=== PATIENT | male | born 1955 | race Two or more races ===

== ENCOUNTER 2020-04-21 08:51 | Outpatient (REF) | payer OTHER, SELFPAY | END 2020-04-21 08:52 | disposition home or self-care (01) | LOC: HO.LAB 08:51 | PROVIDERS: Visit Provider Internal Medicine | DX: Z20.828 Contact with and (suspected) exposure to other viral communicable diseases (principal) | CPT/HCPCS: 87635 ==

== ENCOUNTER 2020-05-09 14:17 | Outpatient (REF) | payer OTHER, SELFPAY | END 2020-05-09 14:18 | disposition home or self-care (01) | LOC: HO.LAB 14:17 | PROVIDERS: Visit Provider Internal Medicine | DX: Z20.828 Contact with and (suspected) exposure to other viral communicable diseases (principal) | CPT/HCPCS: C9803; U0003 ==

== ENCOUNTER 2021-07-08 11:28 | Emergency (ER) | payer OTHER, SELFPAY ==
--- NOTE | ~2021-07-08 | XR_ITS ---
EXAMINATION: XR CHEST CLINICAL INFORMATION: Chest pain and SOB. COMPARISON: None TECHNIQUE: Frontal view of the chest was obtained. FINDINGS: No significant abnormality is noted involving the heart, lungs, mediastinum, bony thorax or soft tissues. XR/XR chest 1V IMPRESSION: Unremarkable chest examination.
--- NOTE | ~2021-07-08 | CT_ITS ---
EXAMINATION: CT HEAD WITHOUT CONTRAST CLINICAL INFORMATION: Severe headache, hypertension. COMPARISON: None TECHNIQUE: Contiguous axial imaging was performed from the skull base to vertex without intravenous administration of contrast. This CT examination was performed using dose optimization techniques as appropriate, variously including the following: *Automated exposure control *Adjustment of mA and/or kV according to patient size (this includes techniques or standardized protocols for targeted exams where dose is matched to indication/reason for exam; i.e. extremities or head) *Use of iterative reconstruction technique DLP: 822 mGy-cm FINDINGS: There is no evidence of acute intracranial hemorrhage or territorial infarction. No abnormal mass effect or midline shift is seen. There is a right infratemporal lobe encephalomalacia from previous insult or injury. Richardson to white matter differentiation is well preserved. No extra-axial fluid collections are identified. The ventricles are normal in size. There is no abnormal attenuation within the brain parenchyma. The osseous structures and soft tissues are normal. The mastoid air cells and visualized portions of the paranasal sinuses are well aerated. CT/CT head/brain wo con IMPRESSION: No acute intracranial process seen. 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
[2021-07-08 12:07] VITALS: BP 173/69; PULSE 66; RESP 18; TEMP 36.8; O2SAT 99; BMI 25.0
--- NOTE | 2021-07-08 15:56 | ECG_ITS ---
Test Reason : chest pain Blood Pressure : / mmHG Vent. Rate : 055 BPM Atrial Rate : 055 BPM P-R Int : 198 ms QRS Dur : 096 ms QT Int : 436 ms P-R-T Axes : 064 -13 -09 degrees QTc Int : 417 ms Sinus bradycardia Minimal voltage criteria for LVH, may be normal variant ( Dae product ) Nonspecific ST abnormality Abnormal ECG No previous ECGs available Referred By: Bernadette Allen Electronically Signed By:GIANNI RENE MD
--- NOTE | 2021-07-08 16:16 | ED.CHESTPAIN ---
HPI - Chest Pain General Chief Complaint: Chest Pain <RUSS Dao - Last Filed: 07/08/21 18:17> Stated Complaint: Chest pain <RUSS Dao - Last Filed: 07/08/21 18:17> Time Seen by Provider: 07/08/21 15:55 <RUSS Dao - Last Filed: 07/08/21 18:17> Source: patient <RUSS Dao - Last Filed: 07/08/21 18:17> Mode of arrival: ambulatory <RUSS Dao - Last Filed: 07/08/21 18:17> Limitations: no limitations <RUSS Dao Last Filed: 07/08/21 18:17> History of Present Illness HPI narrative: 65-year-old male past medical history hypertension presents to the emergency department for chest pain, headache and high blood pressure x2 days. Patient tells me that his chest pain is in the center of his chest, does not radiate anywhere, he tells me is intermittent nature. When asked to rate it on a scale 1-10 he tells me it is not too bad. He also complains of a headache, he is unable to localize where exactly it hurts he tells me he is having a severe headache, all over his head, worse in the occipital region. Patient also tells me he is concerned about his blood pressures they have been in the 160s systolic in 90s diastolic at home when he has been checking his pressures. He tells me is on high blood pressure medication, which he is taking regularly, he has not missed any doses. He denies anxiety at this time. He denies shortness of breath, fevers, chills, nausea, vomiting, abdominal pain, dizziness, vision changes. <RUSS Dao - Last Filed: 07/08/21 18:17> MD complaint: chest pain <RUSS Dao - Last Filed: 07/08/21 18:17> Pertinent past history: other (HTN) <RUSS Dao Last Filed: 07/08/21 18:17> Onset (ago): day(s) (2) <RUSS Dao - Last Filed: 07/08/21 18:17> Timing of current episode: episodic <RUSS Dao - Last Filed: 07/08/21 18:17> Prior episodes: Yes <RUSS Dao - Last Filed: 07/08/21 18:17> Onset: during rest <RUSS Dao - Last Filed: 07/08/21 18:17> Pain location: substernal <RUSS Dao - Last Filed: 07/08/21 18:17> Pain radiation: none <RUSS Dao - Last Filed: 07/08/21 18:17> Severity: mild <RUSS Dao - Last Filed: 07/08/21 18:17> Quality: tightness and aching <RUSS Dao - Last Filed: 07/08/21 18:17> Relieving factors: nothing <RUSS Dao - Last Filed: 07/08/21 18:17> Exacerbating factors: nothing <RUSS Dao - Last Filed: 07/08/21 18:17> Treatment prior to arrival: none <RUSS Dao - Last Filed: 07/08/21 18:17> Related Data Allergies/Adverse Reactions: Allergies Allergy/AdvReac Type Severity Reaction Status Date / Time aspirin [ASPIRIN] Allergy Severe FACIAL Unverified 03/17/20 19:06 SWELLING <RUSS Dao - Last Filed: 07/08/21 18:17> Review of Systems Review of Systems: Constitutional : No Weight loss, No Fever, No Chills, No Fatigue, No Malaise ENT/Mouth : No sore throat, No Rhinorrhea Eyes: No Eye Pain, No Swelling, No Redness Cardiovascular : + Chest Pain, No SOB, No Dyspnea on Exertion, No Orthopnea, No Edema, No Palpitations Respiratory : No Cough, No Sputum, No Wheezing Gastrointestinal : No Nausea, No Vomiting, No Diarrhea, No Constipation, No abdominal Pain, No Hematochezia, No Melena Genitourinary : No Dysuria, No Urinary Frequency, No Hematuria, Musculoskeletal : No joint pain, No Myalgias, No Joint Swelling Skin : No Skin Lesions, No rash Neuro : No Weakness, No Numbness, No Dizziness, + Headache Psych : No Anxiety/Panic, No Depression All other systems reviewed and are negative <RUSS Dao - Last Filed: 07/08/21 18:17> Yes all other systems are reviewed and are negative <RUSS Dao - Last Filed: 07/08/21 18:17> [facility] Past Medical History Attestation statement: The following information was validated with the patient. <RUSS Dao - Last Filed: 07/08/21 18:17> Source: old records reviewed and nursing notes reviewed <RUSS Dao - Last Filed: 07/08/21 18:17> Social History Social History: Social History Advance Directives: No Advance Directives Information Provided: Yes <RUSS Dao - Last Filed: 07/08/21 18:17> Physical Exam Vital Signs: Vital Signs: Last Vital Signs Temp 97.6 F 07/08/21 18:58 Pulse 72 07/08/21 18:58 Resp 11 L 07/08/21 18:58 BP 174/75 H 07/08/21 18:58 Pulse Ox 96 07/08/21 18:58 BMI result Body Mass Index 25.0 <RUSS Dao - Last Filed: 07/08/21 18:17> Vital Signs: Last Vital Signs Temp 97.6 F 07/08/21 18:58 Pulse 72 07/08/21 18:58 Resp 11 L 07/08/21 18:58 BP 174/75 H 07/08/21 18:58 Pulse Ox 96 07/08/21 18:58 BMI result Body Mass Index 25.0 <SKYLA Inman-JOE - Last Filed: 07/08/21 20:12> Appearance: Alert.? Oriented X3.? No acute distress.? Head: Normocephalic, atraumatic, no step-offs or deformities Eyes: Pupils equal, round and reactive to light.? ENT: Pharynx normal.? Neck: Normal inspection.? Neck supple.? CVS: Normal heart rate and rhythm.? Pulses normal.? Respiratory: No respiratory distress.? Breath sounds normal.? Abdomen: Soft and nontender.? Skin: Skin warm and dry.? Normal skin color.? Normal skin turgor.? Extremities: No lower extremity edema.? No calf ttp. 5/5 strength to bilateral upper and lower extremities Back: No midline tenderness, no C-spine tenderness, full range of motion, no CVA tenderness bilaterally Neuro: Oriented X 3.? No motor deficit.? No sensory deficit. Normal pirpbu-tn-jbgo, bato-nn-snun, steady gait, no ataxia. <RUSS Dao - Last Filed: 07/08/21 18:17> Course Reevaluation(s) Reevaluation #1: Sign out will be given to HITESH Cardoso pending labs CT, trop, CXR, CT head. <RUSS Dao - Last Filed: 07/08/21 18:17> Time: 18:16 <RUSS Dao - Last Filed: 07/08/21 18:17> Reevaluation #2: Troponin negative normal chest x-ray all labs reviewed and no acute findings. CT of the head with no acute intracranial process. Patient will be sent home to follow-up with PCP. <FAITH Inman - Last Filed: 07/08/21 20:12> Time: 20:11 <FAITH Inman - Last Filed: 07/08/21 20:12> MDM - Chest Pain MDM Narrative Medical decision making narrative: 1730 65 yo m pmhx htn presents with HTN, substernal non radiating mild CP, and sevre headache. PE benign, neurological exam nonfocal, normal ezmyrl-mv-kmzl, ztyi-nk-xjen, normal tandem gait, no ataxia. Based off patient's history and physical examination this is unlikely ACS, ICH or cerebellar infarct. Patient's neuro exam is nonfocal, EKG normal, patient has been experiencing these symptoms for 2 days. Plan at this time is to obtain basic labs, troponin, EKG, CT of the head as patient tells me this is severe headache. <RUSS Dao - Last Filed: 07/08/21 18:17> Medical Records Data Attestation: I reviewed the patient's medical records. <RUSS Dao - Last Filed: 07/08/21 18:17> Lab Data Attestation: I reviewed the patient's lab results. <RUSS Dao - Last Filed: 07/08/21 18:17> Result diagrams: : 07/08/21 19:04 07/08/21 19:04 <RUSS Dao - Last Filed: 07/08/21 18:17> Labs: Lab Results 07/08/21 07/08/21 07/08/21 Range/Units 16:42 19:04 19:04 WBC 10.4 (4.8-10.8) X10*3/uL RBC 4.88 (4.60-5.80) X10*6/uL Hgb 14.3 (14.0-18.0) g/dl Hct 43.0 (42.0-52.0) % MCV 88.1 (80.0-98.0) fL MCH 29.3 (27.0-33.0) pg MCHC 33.3 (31.0-36.0) g/dl RDW 12.2 (11.0-16.0) % Plt Count 427 H (160-400) X10*3/uL MPV 10.3 (9.4-12.4) fL Immature Gran % (Auto) 0.4 (0.0-0.4) % Neut % (Auto) 64.9 (45-73) % Lymph % (Auto) 23.4 (20-40) % Eaton % (Auto) 8.2 (2-11) % Eos % (Auto) 2.5 (0-4) % Baso % (Auto) 0.6 (0-2) % Lymph # (Auto) 2.4 (1.2-4.9) X10*3/uL Eaton # (Auto) 0.9 (0.1-1.2) X10*3/uL Eos # (Auto) 0.3 (0.0-0.4) X10*3/uL Baso # (Auto) 0.1 (0.0-0.2) X10*3/uL Abs Immat Gran (auto) 0.04 H (0.00-0.03) X10*3/uL Absolute Neuts (auto) 6.8 (2.0-8.3) x10*3/uL Absolute Nucleated RBC 0.000 (0.0-0.012) X10*3/uL Nucleated RBC % (auto) 0.0 (0.0-0.2) /100WBC Sodium 142 (135-145) mmol/L Potassium 3.8 (3.3-5.1) mmol/L Chloride 103 (96-108) mmol/L Carbon Dioxide 32 H (22-29) mmol/L Anion Gap 11 L (12-20) BUN 17 H (9-16) mg/dL Creatinine 1.05 (0.5-1.4) mg/dL Estim Creat Clear Calc 60.1 Estimated GFR > 60 Random Glucose 98 (60-115) mg/dL Calcium 10.1 (8.4-10.2) mg/dL Magnesium 1.9 (1.6-2.6) mg/dL Total Bilirubin 1.1 H (0.0-1.0) mg/dL AST 19 (5-37) U/L ALT 30 (0-40) U/L Alkaline Phosphatase 118 H (39-117) U/L Troponin I High Sens (<3.5-35.0) ng/L Total Protein 7.4 (6.5-8.0) g/dL Albumin 4.6 (3.5-5.0) g/dL COVID-19 (RICHARD) Negative (Negative) COVID-19 Clin Com See Note 07/08/21 Range/Units 19:04 WBC (4.8-10.8) X10*3/uL RBC (4.60-5.80) X10*6/uL Hgb (14.0-18.0) g/dl Hct (42.0-52.0) % MCV (80.0-98.0) fL MCH (27.0-33.0) pg MCHC (31.0-36.0) g/dl RDW (11.0-16.0) % Plt Count (160-400) X10*3/uL MPV (9.4-12.4) fL Immature Gran % (Auto) (0.0-0.4) % Neut % (Auto) (45-73) % Lymph % (Auto) (20-40) % Eaton % (Auto) (2-11) % Eos % (Auto) (0-4) % Baso % (Auto) (0-2) % Lymph # (Auto) (1.2-4.9) X10*3/uL Eaton # (Auto) (0.1-1.2) X10*3/uL Eos # (Auto) (0.0-0.4) X10*3/uL Baso # (Auto) (0.0-0.2) X10*3/uL Abs Immat Gran (auto) (0.00-0.03) X10*3/uL Absolute Neuts (auto) (2.0-8.3) x10*3/uL Absolute Nucleated RBC (0.0-0.012) X10*3/uL Nucleated RBC % (auto) (0.0-0.2) /100WBC Sodium (135-145) mmol/L Potassium (3.3-5.1) mmol/L Chloride (96-108) mmol/L Carbon Dioxide (22-29) mmol/L Anion Gap (12-20) BUN (9-16) mg/dL Creatinine (0.5-1.4) mg/dL Estim Creat Clear Calc Estimated GFR Random Glucose (60-115) mg/dL Calcium (8.4-10.2) mg/dL Magnesium (1.6-2.6) mg/dL Total Bilirubin (0.0-1.0) mg/dL AST (5-37) U/L ALT (0-40) U/L Alkaline Phosphatase (39-117) U/L Troponin I High Sens < 3.5 (<3.5-35.0) ng/L Total Protein (6.5-8.0) g/dL Albumin (3.5-5.0) g/dL COVID-19 (RICHARD) (Negative) COVID-19 Clin Com <RUSS Dao - Last Filed: 07/08/21 18:17> Lab Results 07/08/21 07/08/21 07/08/21 Range/Units 16:42 19:04 19:04 WBC 10.4 (4.8-10.8) X10*3/uL RBC 4.88 (4.60-5.80) X10*6/uL Hgb 14.3 (14.0-18.0) g/dl Hct 43.0 (42.0-52.0) % MCV 88.1 (80.0-98.0) fL MCH 29.3 (27.0-33.0) pg MCHC 33.3 (31.0-36.0) g/dl RDW 12.2 (11.0-16.0) % Plt Count 427 H (160-400) X10*3/uL MPV 10.3 (9.4-12.4) fL Immature Gran % (Auto) 0.4 (0.0-0.4) % Neut % (Auto) 64.9 (45-73) % Lymph % (Auto) 23.4 (20-40) % Eaton % (Auto) 8.2 (2-11) % Eos % (Auto) 2.5 (0-4) % Baso % (Auto) 0.6 (0-2) % Lymph # (Auto) 2.4 (1.2-4.9) X10*3/uL Eaton # (Auto) 0.9 (0.1-1.2) X10*3/uL Eos # (Auto) 0.3 (0.0-0.4) X10*3/uL Baso # (Auto) 0.1 (0.0-0.2) X10*3/uL Abs Immat Gran (auto) 0.04 H (0.00-0.03) X10*3/uL Absolute Neuts (auto) 6.8 (2.0-8.3) x10*3/uL Absolute Nucleated RBC 0.000 (0.0-0.012) X10*3/uL Nucleated RBC % (auto) 0.0 (0.0-0.2) /100WBC Sodium 142 (135-145) mmol/L Potassium 3.8 (3.3-5.1) mmol/L Chloride 103 (96-108) mmol/L Carbon Dioxide 32 H (22-29) mmol/L Anion Gap 11 L (12-20) BUN 17 H (9-16) mg/dL Creatinine 1.05 (0.5-1.4) mg/dL Estim Creat Clear Calc 60.1 Estimated GFR > 60 Random Glucose 98 (60-115) mg/dL Calcium 10.1 (8.4-10.2) mg/dL Magnesium 1.9 (1.6-2.6) mg/dL Total Bilirubin 1.1 H (0.0-1.0) mg/dL AST 19 (5-37) U/L ALT 30 (0-40) U/L Alkaline Phosphatase 118 H (39-117) U/L Troponin I High Sens (<3.5-35.0) ng/L Total Protein 7.4 (6.5-8.0) g/dL Albumin 4.6 (3.5-5.0) g/dL COVID-19 (RICHARD) Negative (Negative) COVID-19 Clin Com See Note 07/08/21 Range/Units 19:04 WBC (4.8-10.8) X10*3/uL RBC (4.60-5.80) X10*6/uL Hgb (14.0-18.0) g/dl Hct (42.0-52.0) % MCV (80.0-98.0) fL MCH (27.0-33.0) pg MCHC (31.0-36.0) g/dl RDW (11.0-16.0) % Plt Count (160-400) X10*3/uL MPV (9.4-12.4) fL Immature Gran % (Auto) (0.0-0.4) % Neut % (Auto) (45-73) % Lymph % (Auto) (20-40) % Eaton % (Auto) (2-11) % Eos % (Auto) (0-4) % Baso % (Auto) (0-2) % Lymph # (Auto) (1.2-4.9) X10*3/uL [place]aton # (Auto) (0.1-1.2) X10*3/uL Eos # (Auto) (0.0-0.4) X10*3/uL Baso # (Auto) (0.0-0.2) X10*3/uL Abs Immat Gran (auto) (0.00-0.03) X10*3/uL Absolute Neuts (auto) (2.0-8.3) x10*3/uL Absolute Nucleated RBC (0.0-0.012) X10*3/uL Nucleated RBC % (auto) (0.0-0.2) /100WBC Sodium (135-145) mmol/L Potassium (3.3-5.1) mmol/L Chloride (96-108) mmol/L Carbon Dioxide (22-29) mmol/L Anion Gap (12-20) BUN (9-16) mg/dL Creatinine (0.5-1.4) mg/dL Estim Creat Clear Calc Estimated GFR Random Glucose (60-115) mg/dL Calcium (8.4-10.2) mg/dL Magnesium (1.6-2.6) mg/dL Total Bilirubin (0.0-1.0) mg/dL AST (5-37) U/L ALT (0-40) U/L Alkaline Phosphatase (39-117) U/L Troponin I High Sens < 3.5 (<3.5-35.0) ng/L Total Protein (6.5-8.0) g/dL Albumin (3.5-5.0) g/dL COVID-19 (RICHARD) (Negative) COVID-19 Clin Com <MISTY InmanP-BC - Last Filed: 07/08/21 20:12> Imaging Data CT scan - head: Attestation: I personally reviewed and interpreted this imaging study as follows: <RUSS Dao - Last Filed: 07/08/21 18:17> Radiologist's impression: FINDINGS: There is no evidence of acute intracranial hemorrhage or territorial infarction. No abnormal mass effect or midline shift is seen. There is a right infratemporal lobe encephalomalacia from previous insult or injury. Richardson to white matter differentiation is well preserved. No extra-axial fluid collections are identified. The ventricles are normal in size. There is no abnormal attenuation within the brain parenchyma. The osseous structures and soft tissues are normal. The mastoid air cells and visualized portions of the paranasal sinuses are well aerated. ? CT/CT head/brain wo con IMPRESSION: No acute intracranial process seen. ? 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 <RUSS Dao Last Filed: 07/08/21 18:17> ECG Data ECG #1: Attestation: I personally reviewed and interpreted this ECG as follows: <RUSS Dao - Last Filed: 07/08/21 18:17> ECG interpretation date: 07/08/21 <RUSS Dao Last Filed: 07/08/21 18:17> ECG interpretation time: 18:11 <RUSS Dao Last Filed: 07/08/21 18:17> Prior ECG tracings: available for review <RUSS Dao Last Filed: 07/08/21 18:17> Interpretation: Ventricular rate of 55, OK normal, QRS normal, QT/QTC normal. EKG shows sinus bradycardia, no ST elevations or inversions that are concerning for ischemia. No previous EKGs to compare with. <RUSS Dao - Last Filed: 07/08/21 18:17> Critical Care Time Critical Care Time Critical Care Time: No <RUSS Dao Last Filed: 07/08/21 18:17> Discharge Plan Discharge Clinical Impression: Headache, Chest pain not due to acute coronary syndrome <RUSS Dao Last Filed: 07/08/21 18:17> Patient Disposition: Home, Self-Care <RUSS Dao Last Filed: 07/08/21 18:17> Instructions: Chest Pain (ED), Acute Headache (ED), Chest Wall Pain (ED) <RUSS Dao Last Filed: 07/08/21 18:17> Additional Instructions: Take your medications as prescribed. If you were prescribed antibiotics today, it is important that you take your medication to their entirety, do not skip any doses, do not finish them early. Follow-up with your primary care provider this week. Return to the emergency department with new or worsening symptoms. In case of emergency call 911 <RUSS Dao Last Filed: 07/08/21 18:17> Referrals: [facility] [Primary Care Provider] - 2 days <RUSS Dao - Last Filed: 07/08/21 18:17> Stand Alone Forms: Work/School Release <RUSS Dao - Last Filed: 07/08/21 18:17>
[2021-07-08 16:36] VITALS: BP 182/80; PULSE 62; RESP 12; TEMP 36.6; O2SAT 99
[2021-07-08 17:01] LABS: COVID-19 Test Negative (Negative); IDNOW Serial# 08D9AD1C
[2021-07-08] MEDS: Acetaminophen 325 MG TABLET 650 MG PO (18:53)
[2021-07-08 18:58] VITALS: BP 174/75; PULSE 72; RESP 11; TEMP 36.4; O2SAT 96
[2021-07-08 19:09] LABS: MANUAL DIFF FLAG NO
[2021-07-08 19:11] LABS: Basophils Absolute Auto 0.1 X10*3/uL (0.0-0.2); Basophils Percent Auto 0.6 % (0-2); Eosinophils Absolute Auto 0.3 X10*3/uL (0.0-0.4); Eosinophils Percent Auto 2.5 % (0-4); Hemoglobin 14.3 g/dl (14.0-18.0); Imm Gran Abs Auto 0.04 X10*3/uL (0.00-0.03); Imm Gran Pct Auto 0.4 % (0.0-0.4); Lymphocytes Absolute Auto 2.4 X10*3/uL (1.2-4.9); Lymphocytes Percent Auto 23.4 % (20-40); Mean Corpuscular HGB Conc 33.3 g/dl (31.0-36.0); Mean Corpuscular Hemoglobin 29.3 pg (27.0-33.0); Mean Corpuscular Volume 88.1 fL (80.0-98.0); Mean Platelet Volume 10.3 fL (9.4-12.4); Monocytes Absolute Auto 0.9 X10*3/uL (0.1-1.2); Monocytes Percent Auto 8.2 % (2-11); Neutrophils Absolute Auto 6.8 x10*3/uL (2.0-8.3); Neutrophils Percent Auto 64.9 % (45-73); Platelet Count 427 X10*3/uL (160-400); Red Blood Count 4.88 X10*6/uL (4.60-5.80); Red Cell Distribution Width 12.2 % (11.0-16.0); White Blood Count 10.4 X10*3/uL (4.8-10.8)
[2021-07-08 19:26] LABS: Alanine Aminotransferase 30 U/L (0-40); Albumin Level 4.6 g/dL (3.5-5.0); Alkaline Phosphatase 118 U/L (39-117); Anion Gap 11 (12-20); Aspartate Amino Transferase 19 U/L (5-37); Bilirubin Total 1.1 mg/dL (0.0-1.0); Blood Urea Nitrogen 17 mg/dL (9-16); Calcium 10.1 mg/dL (8.4-10.2); Carbon Dioxide 32 mmol/L (22-29); Chloride 103 mmol/L (96-108); Creatinine Clr Calc Pharmacy 60.1; Estimated Glomerular Filt Rate > 60; Glucose Random 98 mg/dL (60-115); Magnesium 1.9 mg/dL (1.6-2.6); Potassium 3.8 mmol/L (3.3-5.1); Sodium 142 mmol/L (135-145); Total Protein 7.4 g/dL (6.5-8.0)
[2021-07-08 19:30] LABS: Troponin-I High Sensitivity < 3.5 ng/L (<3.5-35.0)
[2021-07-08 20:00] VITALS: BP 156/75; PULSE 72; RESP 11; TEMP 36.4; O2SAT 96
== END 2021-07-08 20:44 | disposition home or self-care (01) ==
PROVIDERS: Physician Assistant; Emergency Provider Internal Medicine
DX: R51.9 Headache, unspecified (principal); R07.89 Other chest pain; R00.1 Bradycardia, unspecified; I10 Essential (primary) hypertension; Z20.822 Contact with and (suspected) exposure to COVID-19
CPT/HCPCS: 70450; 71045; 80053; 83735; 84484; 85025; 87635; 93005; 99284

== ENCOUNTER 2021-07-22 12:04 | Emergency (ER) | payer OTHER, SELFPAY ==
--- NOTE | ~2021-07-22 | CT_ITS ---
EXAMINATION: CT HEAD WITHOUT CONTRAST CLINICAL INFORMATION: Hypertension. Headache. Covid positive. COMPARISON: 07/08/2021 TECHNIQUE: Contiguous axial imaging was performed from the skull base to vertex without intravenous contrast. This CT examination was performed using dose optimization techniques as appropriate, variously including the following: * Automated exposure control * Adjustment of mA and/or kV according to patient size (this includes techniques or standardized protocols for targeted exams where dose is matched to indication/reason for exam; i.e. extremities or head) Use of iterative reconstruction technique DLP: 767 mGy-cm. FINDINGS: There is no evidence of acute intracranial hemorrhage or territorial infarction. No abnormal mass effect or midline shift is seen. 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 Richardson to white matter differentiation is otherwise well preserved. No extra-axial fluid collections are identified. No hydrocephalus. Proportional prominence of the ventricles and sulcal spaces is consistent with mild volume loss. Patchy periventricular and deep white matter hypoattenuation is consistent with mild small vessel ischemic changes. The osseous structures and soft tissues are normal. The mastoid air cells and visualized portions of the paranasal sinuses are well aerated. CT/CT head/brain wo con IMPRESSION: No acute intracranial pathology.
[2021-07-22 14:14] VITALS: BP 190/86; PULSE 60; RESP 17; TEMP 36.6; O2SAT 99; BMI 26.9
[2021-07-22 21:33] VITALS: BP 181/74; PULSE 58; RESP 16; TEMP 36.5; O2SAT 98
--- NOTE | 2021-07-22 21:42 | ED.GENADULT ---
HPI - General Adult General Chief complaint: General Medical Stated complaint: HBP/headache Time Seen by Provider: 07/22/21 21:42 Source: patient and dairy truck driver History of Present Illness HPI narrative: 65-year-old male with history of hypertension presents with 5-6 days of headaches and elevated blood pressure, patient does not know his blood pressure medications but states that he takes for pills. This is not been associated with double/loss of vision no changes in speech or hearing and he denies any extremity numbness/tingling/weakness, shortness of breath, chest pain or palpitations. Patient states that he was evaluated by his primary care physician this week and that she gave him 2 pills in the office, did not change his prescription and then ?send me home?. Related Data Allergies Allergy/AdvReac Type Severity Reaction Status Date / Time aspirin [ASPIRIN] Allergy Severe FACIAL Unverified 03/17/20 19:06 SWELLING Review of Systems Review of Systems: Pertinent positives and negatives as stated in HPI 10 point review of systems is otherwise negative. [facility] Past Medical History Source: nursing notes reviewed Social History Social History Advance Directives: No Physical Exam Vital Signs: Vital Signs: Last Vital Signs Temp 97.7 F 07/22/21 21:33 Pulse 53 07/23/21 00:57 Resp 16 07/23/21 00:57 BP 165/74 H 07/23/21 00:57 Pulse Ox 99 07/23/21 00:57 BMI result Body Mass Index 26.9 VITAL SIGNS: Reviewed. GENERAL: Well developed, well nourished, in no acute distress. HEAD: Normocephalic/atraumatic EYES: PERRLA, EOMI ; right eye has baseline injury from previous where patient has loss of vision ?in the middle?, otherwise visual lopez are intact OROPHARYNX: no oral lesions noted, posterior pharynx clear NECK: Supple, no adenopathy LUNGS: Normal breath sounds. No adventitious sounds or accessory muscle use. SpO2<98> CARDIOVASCULAR: Regular rate and rhythm without noted murmurs, no JVD or lower extremity edema. ABDOMEN: Soft, non-tender, non-distended with bowel sounds. SKIN: Inspection of the skin reveals no rashes NEUROLOGIC: Alert and oriented x 4. Strength and sensation to light touch were grossly intact x 4, no facial asymmetry, no pronator drift, cranial nerves 2-12 grossly intact Course Course Course Narrative: 65-year-old male with history and clinical presentation consistent with poorly controlled hypertension with associated headache but patient is currently nonfocal. Will proceed with lab work, confirming medications. Review of all investigations negative for acute findings patient was provided with 5 mg of Norvasc with good response in blood pressure. Patient is a poor historian and family member administers the medications as per patient. Patient states that he takes his medications in the morning only, however it is noted that there are blood pressure medications ordered for the evening as well. Will phone counselor patient on taking medications and timing and discussed with family member. Patient is otherwise clinically stable for discharge to home and recommend follow-up with his primary care provider on Saturday morning. Medical Decision Making Lab Data Result diagrams: 07/22/21 22:16 07/22/21 22:16 Labs: Lab Results 07/22/21 07/22/21 07/22/21 Range/Units 22:16 22:16 22:20 WBC 9.8 (4.8-10.8) X10*3/uL RBC 4.59 L (4.60-5.80) X10*6/uL Hgb 13.8 L (14.0-18.0) g/dl Hct 40.4 L (42.0-52.0) % MCV 88.0 (80.0-98.0) fL MCH 30.1 (27.0-33.0) pg MCHC 34.2 (31.0-36.0) g/dl RDW 12.5 (11.0-16.0) % Plt Count 337 (160-400) X10*3/uL MPV 10.3 (9.4-12.4) fL Immature Gran % (Auto) 0.3 (0.0-0.4) % Neut % (Auto) 68.3 (45-73) % Lymph % (Auto) 22.0 (20-40) % [place] % (Auto) 7.0 (2-11) % Eos % (Auto) 2.0 (0-4) % Baso % (Auto) 0.4 (0-2) % Lymph # (Auto) 2.2 (1.2-4.9) X10*3/uL [place] # (Auto) 0.7 (0.1-1.2) X10*3/uL Eos # (Auto) 0.2 (0.0-0.4) X10*3/uL Baso # (Auto) 0.0 (0.0-0.2) X10*3/uL Abs Immat Gran (auto) 0.03 (0.00-0.03) X10*3/uL Absolute Neuts (auto) 6.7 (2.0-8.3) x10*3/uL Absolute Nucleated RBC 0.000 (0.0-0.012) X10*3/uL Nucleated RBC % (auto) 0.0 (0.0-0.2) /100WBC Sodium 141 (135-145) mmol/L Potassium 3.6 (3.3-5.1) mmol/L Chloride 106 (96-108) mmol/L Carbon Dioxide 26 (22-29) mmol/L Anion Gap 13 (12-20) BUN 18 H (9-16) mg/dL Creatinine 0.97 (0.5-1.4) mg/dL Estim Creat Clear Calc 65.1 Estimated GFR > 60 Random Glucose 95 (60-115) mg/dL Calcium 10.0 (8.4-10.2) mg/dL Total Bilirubin 1.0 (0.0-1.0) mg/dL AST 25 (5-37) U/L ALT 27 (0-40) U/L Alkaline Phosphatase 105 (39-117) U/L Total Protein 7.5 (6.5-8.0) g/dL Albumin 4.7 (3.5-5.0) g/dL Urine Color YELLOW Urine Appearance CLEAR Urine pH 6.0 (5.0-8.0) Ur Specific [place] 1.025 (1.005-1.025) Urine Protein NEG (NEG-TRACE) MG/DL Urine Glucose (UA) NEG (NEG) MG/DL Urine Ketones 5 (NEG) MG/DL Urine Blood NEG (NEG) Urine Nitrite NEG (NEG) Ur Leukocyte Esterase NEG (NEG) ECG Data Attestation: I personally reviewed and interpreted this ECG as follows: Prior ECG tracings: available for review (07/08/2021) Interpretation: Sinus bradycardia, HR-54, no STEMI, LA/QRS/QTC are within normal limits. Discharge Plan Discharge Clinical Impression: Hypertension Patient Disposition: Home, Self-Care Instructions: DASH Eating Plan (ED), Hypertension (ED) Additional Instructions: 1. Reanudar todos los medicamentos caseros seg?n lo prescrito. [place] significa que tiene medicamentos para la presi?n arterial que debe leslie por la noche, lila se indica en el empaque exterior. 2. Reduzca la cantidad de garcia ingesta de kerry. 3. Llame a garcia proveedor de atenci?n primaria el lunes por la ma?coral para analizar el ajuste de la medicaci?n seg?n lo indicado. Todas charlene pruebas aqu? hoy dieron negativo para cualquier hallazgo ronny para explicar mejor por qu? garcia presi?n arterial est? elevada. Regrese a la arturo de emergencias si los s?ntomas empeoran. Referrals: [facility] [Primary Care Provider] - 2 days Print Language: Mongolian
--- NOTE | 2021-07-22 21:45 | ECG_ITS ---
Test Reason : hypertension Blood Pressure : / mmHG Vent. Rate : 054 BPM Atrial Rate : 054 BPM P-R Int : 190 ms QRS Dur : 090 ms QT Int : 440 ms P-R-T Axes : 000 -14 005 degrees QTc Int : 417 ms Sinus bradycardia Minimal voltage criteria for LVH, may be normal variant ( [place] product ) Borderline ECG When compared to the previous EKG of No significant changes seen Referred By: Dorothea Sotomayor Electronically Signed By:Everardo Turner
[2021-07-22 22:20] LABS: MANUAL DIFF FLAG NO
[2021-07-22 22:21] LABS: Basophils Percent Auto 0.4 % (0-2); Eosinophils Absolute Auto 0.2 X10*3/uL (0.0-0.4); Hematocrit 40.4 % (42.0-52.0); Hemoglobin 13.8 g/dl (14.0-18.0); Imm Gran Abs Auto 0.03 X10*3/uL (0.00-0.03); Imm Gran Pct Auto 0.3 % (0.0-0.4); Lymphocytes Absolute Auto 2.2 X10*3/uL (1.2-4.9); Mean Corpuscular HGB Conc 34.2 g/dl (31.0-36.0); Mean Corpuscular Hemoglobin 30.1 pg (27.0-33.0); Mean Platelet Volume 10.3 fL (9.4-12.4); Monocytes Absolute Auto 0.7 X10*3/uL (0.1-1.2); Neutrophils Absolute Auto 6.7 x10*3/uL (2.0-8.3); Neutrophils Percent Auto 68.3 % (45-73); Platelet Count 337 X10*3/uL (160-400); Red Blood Count 4.59 X10*6/uL (4.60-5.80); Red Cell Distribution Width 12.5 % (11.0-16.0); White Blood Count 9.8 X10*3/uL (4.8-10.8)
[2021-07-22 22:39] LABS: Alanine Aminotransferase 27 U/L (0-40); Albumin Level 4.7 g/dL (3.5-5.0); Alkaline Phosphatase 105 U/L (39-117); Anion Gap 13 (12-20); Aspartate Amino Transferase 25 U/L (5-37); Blood Urea Nitrogen 18 mg/dL (9-16); Carbon Dioxide 26 mmol/L (22-29); Chloride 106 mmol/L (96-108); Creatinine Clr Calc Pharmacy 65.1; Estimated Glomerular Filt Rate > 60; Glucose Random 95 mg/dL (60-115); Potassium 3.6 mmol/L (3.3-5.1); Sodium 141 mmol/L (135-145); Total Protein 7.5 g/dL (6.5-8.0)
[2021-07-22 23:39] VITALS: BP 155/60; PULSE 57; RESP 16; O2SAT 98
[2021-07-22] MEDS: amLODIPine Besylate 5 MG TABLET PO (23:40)
[2021-07-23 00:57] VITALS: BP 165/74; PULSE 53; RESP 16; O2SAT 99
[2021-07-23 01:48] LABS: Appearance Urine CLEAR; Color Urine YELLOW; Glucose Urine UA NEG (NEG); Leukocyte Esterase Urine NEG (NEG); Nitrite Urine NEG (NEG); Specific Gravity - Urine 1.025 (1.005-1.025); Urine Blood NEG (NEG); Urine Ketones 5 MG/DL (NEG); Urine Protein NEG (NEG-TRACE)
[2021-07-23 02:31] VITALS: BP 171/74; PULSE 58; RESP 14; O2SAT 97
== END 2021-07-23 02:55 | disposition home or self-care (01) ==
PROVIDERS: Emergency Provider Student in an Organized Health Care Education/Training Program
DX: I10 Essential (primary) hypertension (principal); R51.9 Headache, unspecified
CPT/HCPCS: 36415; 70450; 80053; 81003; 85025; 93005; 99284

== ENCOUNTER 2022-08-23 07:41 | Emergency (ER) | payer MEDICARE, SELFPAY ==
[2022-08-23 07:59] VITALS: BP 160/70; PULSE 74; RESP 16; TEMP 36.7; O2SAT 97; BMI 26.6
--- NOTE | 2022-08-23 08:49 | ED.GENADULT ---
HPI - General Adult General Chief complaint: Ear Problems Stated complaint: ear pain Time Seen by Provider: 08/23/22 08:45 Source: patient and domestic technician Mode of arrival: ambulatory Limitations: language barrier History of Present Illness HPI narrative: Patient is a 66 year old assigned male at with no reported medical history presenting to the emergency department today with right ear pain. Patient states that over the last 2 days he has had right ear pain. Patient denies any dizziness, lightheadedness, abdominal pain, nausea, vomiting, fever, chills, blurry vision, double vision, loss of vision, chest pain, difficulty breathing, shortness of breath, back pain, night sweats, pain with urination, increased urinary frequency, increased urinary urgency, blood in his urine or stool, syncope or a near syncopal episode, recent trauma or falls, bowel incontinence, bladder incontinence, bowel retention, bladder retention, or any other complaints at this time. Onset (ago): day(s) (2) Severity: mild Severity scale (1-10): 2 Quality: aching and dull Pain Consistency: constant Relieving factors: none Exacerbating factors: none Associated symptoms: denies other symptoms Treatments prior to arrival: none Related Data Previous Rx's Medication Instructions Recorded amoxicillin 875 mg-potassium 1 tab PO BID 7 days #14 tabs 08/23/22 clavulanate 125 mg tablet Allergies Allergy/AdvReac Type Severity Reaction Status Date / Time aspirin [ASPIRIN] Allergy Severe FACIAL Unverified 03/17/20 19:06 SWELLING Review of Systems Constitutional: Constitutional: Reports no additional constitutional complaints, Denies chills, Denies fever(s) and Denies night sweats Eyes: Eyes: Reports no additional eye complaints, Denies blurry vision, Denies change in vision, Denies diplopia, Denies eye discharge, Denies loss of vision and Denies eye pain ENT: Denies dizziness Comments: right ear pain Cardiovascular: Cardiovascular: Reports no additional cardiovascular complaints, Denies chest pain, Denies lightheadedness, Denies Loss of Consciousness and Denies dyspnea Respiratory: Respiratory: Reports no additional respiratory complaints and Denies dyspnea Gastrointestinal: Gastrointestinal: Reports no additional gastrointestinal complaints, Denies abdominal pain, Denies melena, Denies hematochezia, Denies change in bowel habits and Denies change in stool character Genitourinary: Genitourinary: Reports no additional male genitourinary complaints, Denies hematuria, Denies oliguria, Denies difficulty urinating, Denies dysuria, Denies urinary frequency, Denies urinary hesitancy, Denies urinary incontinence and Denies urinary urgency Musculoskeletal: Musculoskeletal: Reports no additional musculoskeletal complaints, Denies numbness and Denies tingling Neurologic: Denies dizziness, Denies loss of vision, Denies numbness and Denies tingling Psychiatric: Psychiatric: Reports no additional psychiatric complaints Endocrine: Endocrine: Reports no additional endocrine complaints Hematologic/Lymphatic: Hematologic/Lymphatic: Reports no additional hematologic/lymphatic complaints Allergic/Immunologic: Allergic/Immunologic: Reports no additional allergic/immunologic complaints [facility] Past Medical History Attestation statement: The following information was validated with the patient. Source: old records reviewed and nursing notes reviewed Social History Social History Advance Directives: No Physical Exam ED Vital Signs: Vital Signs - 24 hr 08/23/22 07:59 Temperature 98.1 F Pulse Rate 74 Respiratory Rate 16 Blood Pressure 160/70 H Pulse Oximetry 97 Oxygen Delivery Method Room Air BMI result Body Mass Index 26.6 Const General: cooperative, no acute distress, alert and awake Nutritional Appearance: well nourished Orientation/consciousness: patient oriented x3 Limitations: no limitations HENMT Head: Yes normal to inspection and Yes atraumatic Ears: hearing grossly normal bilaterally, external ears normal and TM abnormal erythematous on the right General nose exam: Normal external nose present, no nasal discharge noted and no epistaxis Face and sinus: Yes normal facial exam, No abrasion and No laceration Mouth: Normal oral and palatal mucosa present, no drooling and no muffled voice Eyes General: appearance normal, both eyes and all related structures Periorbital: periorbital findings normal Eyelids: Yes eyelids normal Conjunctivae: conjunctivae normal Pupils: Equal, round and reactive pupils present EOM: EOMs intact bilaterally Neck Neck: Yes normal visual inspection, Yes full ROM and Yes no lymphadenopathy Chest Chest palpation & inspection: normal inspection of the chest Resp Effort & Inspection: normal respiratory effort and able to speak in complete sentences Auscultation: clear to auscultation bilaterally Cardio Rate: regular rate Rhythm: regular rhythm GI Inspection: Yes normal to inspection Palpation (GI): Soft to palpation, not firm, nontender and no guarding Neuro General: patient oriented x3 and moves all extremities Cranial nerves: Yes Equal, round and reactive pupils present Cognition (Neuro): normal cognition Motor exam (neuro): 5/5 motor strength present throughout Sensory Exam: Normal double simultaneous stimulation for sensation Coordination: [id number]-[id number]-wion test normal Extrem General: Yes normal to inspection, Yes full ROM and Yes capillary refill normal Psych Appearance: grossly normal Mental Status: mental status grossly normal Affect: normal affect Attitude: cooperative Thought process: Normal thought process present Thought content: Normal thought content present Insight: Good insight present (Psych) Medical Decision Making Medical Decision Making MDM Narrative: Patient is a 66 year old assigned male at with no reported medical history presenting to the emergency department today with right ear pain. Patient's physical exam showed mild right TM erythema but was otherwise unremarkable. I explained my physical exam findings to the patient. I answered all questions asked by the patient. I stressed the importance of the patient taking his medication as prescribed. I stressed the importance of the patient following up with his primary care provider. I stressed the importance of the patient returning to the emergency department immediately if his symptoms were to worsen or if he were to develop any dizziness, shortness of breath, difficulty breathing, chest pain, blurry vision, loss of vision, nausea, vomiting, abdominal pain, fever, chills, back pain, or any other complaints. Patient verbalized agreement and understanding with this treatment plan and discharge. Differential Diagnosis Differential Diagnoses: The differential diagnosis associated with the presentation includes otitis media Discharge Plan Discharge Clinical Impression: Otitis media Patient Disposition: Home, Self-Care Instructions: Ear Infection (ED) Additional Instructions: Follow up with your primary care provider. Return to the emergency department immediately if your symptoms worsen or if you develop any dizziness, shortness of breath, difficulty breathing, chest pain, blurry vision, loss of vision, nausea, vomiting, abdominal pain, fever, chills, back pain, or any other complaints. Murali un seguimiento con garcia proveedor de atenci?n primaria. Regrese al departamento de emergencias de inmediato si charlene s?ntomas empeoran o si presenta mareos, falta de aire, dificultad para respirar, dolor de pecho, visi?n borrosa, p?rdida de la visi?n, n?useas, v?mitos, dolor abdominal, fiebre, escalofr?os, dolor de espalda o cualquier otras quejas. Prescriptions: New amoxicillin-pot clavulanate 875-125 mg tablet 1 tab PO BID 7 Days Qty: 14 0RF Referrals: [facility] [place] Family Medicine [Provider Group] (Call to establish and follow up with a primary care provider. If you already have a primary care provider, please follow up with them. Llame para establecer y hacer un seguimiento con un proveedor de atenci?n primaria. Si ya tiene un proveedor de atenci?n primaria, murali un seguimiento con ?l.) [facility] [place] Primary Care, Joselo [Provider Group] (Call to establish and follow up with a primary care provider. If you already have a primary care provider, please follow up with them. Llame para establecer y hacer un seguimiento con un proveedor de atenci?n primaria. Si ya tiene un proveedor de atenci?n primaria, murali un seguimiento con ?l.) [facility] [place] Primary CareElizabeth [Provider Group] (Call to establish and follow up with a primary care provider. If you already have a primary care provider, please follow up with them. Llame para establecer y hacer un seguimiento con un proveedor de atenci?n primaria. Si ya tiene un proveedor de atenci?n primaria, murali un seguimiento con ?l.) Stand Alone Forms: Work/School Release Interventions: ED Discharge Assessment Last Done: 08/23/22 09:36 Discharge Date/Time: 08/23/22 09:37 Print Language: Polish
== END 2022-08-23 09:37 | disposition home or self-care (01) ==
PROVIDERS: Emergency Provider Emergency Medicine
DX: H66.91 Otitis media, unspecified, right ear (principal); H92.01 Otalgia, right ear
CPT/HCPCS: 99283

== ENCOUNTER 2022-09-01 11:34 | Emergency (ER) | payer MEDICARE, SELFPAY ==
[2022-09-01 11:36] VITALS: BP 173/65; PULSE 72; RESP 16; TEMP 36.3; O2SAT 99; BMI 25.9
--- NOTE | 2022-09-01 11:39 | ED_ITS ---
HPI - Ear Problem General Chief complaint: Ear Problems Stated complaint: ear pain Time Seen by Provider: 09/01/22 11:54 Source: patient Mode of arrival: ambulatory Limitations: no limitations History of Present Illness HPI Narrative: Patient is a 66 year old male who presents emergency department for evaluation of ear pain. He reports for the past few days he has been experiencing pain to the right ear, decreased hearing, and a feeling like it is clogged. When asked he does report a yellow/brown drainage coming out of the ear as well, and slight itchiness. Denies fevers, chills, numbness or tingling to the face, pain to the jaw, headache, neck pain, neck stiffness, numbness or tingling to the face Related Data Previous Rx's Medication Instructions Recorded amoxicillin 875 mg-potassium 1 tab PO BID 7 days #14 tabs 08/23/22 clavulanate 125 mg tablet amoxicillin 875 mg-potassium 1 tab PO BID 10 days #20 tabs 09/01/22 clavulanate 125 mg tablet Allergies Allergy/AdvReac Type Severity Reaction Status Date / Time aspirin [ASPIRIN] Allergy Severe FACIAL Unverified 03/17/20 19:06 SWELLING Review of Systems Review of Systems: Yes all other systems are reviewed and are negative [facility] Past Medical History Attestation statement: The following information was validated with the patient. Source: old records reviewed Social History Social History Alcohol intake: never Smoked in Last 30 Days: No Use of substances other than those prescribed or required for medical reasons: No Advance Directives: No Advance Directives Information Provided: Yes Physical Exam Vital Signs: Vital Signs: Last Vital Signs Temp 97.4 F 09/01/22 11:36 Pulse 72 09/01/22 11:36 Resp 16 09/01/22 11:36 BP 173/65 H 09/01/22 11:36 Pulse Ox 99 09/01/22 11:36 O2 Del Method 09/01/22 11:36 BMI result Body Mass Index 25.9 Appearance: Alert.?Oriented to person, place and time. No acute distress.?Normal affect. Eyes: Pupils equal, round and reactive to light.? ENT: Pharynx normal.??Left TM normal. Right TM erythematous, purulent drainage, spontaneous rupture between 02:00 o'clock/ 03:00 o'clock centrally Neck: Normal inspection.? Neck supple.? No nuchal rigidity. CVS: Heart sounds normal. Normal heart rate and rhythm.? Pulses normal.?? Respiratory: No respiratory distress.? Lung sounds clear to auscultation bilaterally?? Abdomen: Soft and non-tender. Normoactive bowel sounds. Skin: Skin warm and dry.? Normal skin color.? Extremities: No lower extremity edema.? Neuro: Moves all extremities spontaneously. Sensation intact bilaterally. CN II- XII intact. No focal neuro deficits. Ambulates with normal steady gait. Medical Decision Making Medical Decision Making MDM Narrative: Patient is a 66-year-old male who presents emergency department for evaluation of right ear pain. Physical examination is consistent with acute otitis media and spontaneous rupture of the TM. Discussed with patient plan of care for discharge home, course of Augmentin was sent to pharmacy, instructed not to insert anything into the ear canal as this may worsen rupture. Provided contact information for a ENT specialist for follow-up. Examination at this time is not consistent with mastoiditis, facial nerve palsy, meningitis, otitis externa. Patient verbalizes understanding. We discussed worrisome signs and symptoms of 1 re-evaluation in the emergency department. All questions answered. Differential Diagnosis Differential Diagnoses: The differential diagnosis associated with the presentation includes (As noted above) Prescription Management I considered prescription management with: Antibiotic Discharge Plan Discharge Clinical Impression: Acute suppurative otitis media with spontaneous rupture of ear drum, right ear Patient Disposition: Home, Self-Care Instructions: Ear Infection (ED) Additional Instructions: You have an infection of your right ear that has caused a rupture or perforation to your ear drum. You have been given a course of antibiotics, please complete this entire course. Do not insert anything into the ear such as Q-tips, as this may increase the size of the rupture and worsened symptoms. You have been given contact information for the executive search consultant, please call their office thing Saturday morning to arrange for follow-up. If you develop worsening pain, fevers, chills, pain extending into the head/neck/jaw or numbness to the face, headache, dizziness, neck pain then this should be re-evaluated Tiene jacobo infecci?n en el o?do derecho que martinez causado jacobo ruptura o perforaci?n en el t?mpano. Le thompson dado un curso de antibi?ticos, por favor complete todo clifford curso. No inserte nada en el o?do, lila hisopos, ya que esto puede aumentar el mian?o de la ruptura y empeorar los s?ntomas. Se le martinez proporcionado la informaci?n de contacto del especialista en o?dos, llame a garcia oficina a primera hora del lunes por la ma?coral para programar el seguimiento. Si desarrolla un empeoramiento del dolor, fiebre, escalofr?os, dolor que se extiende a la amy/zo/vickie?bula o entumecimiento de la karis, dolor de amy, mareos, dolor de zo, entonces esto debe ser reevaluado. Prescriptions: New amoxicillin-pot clavulanate 875-125 mg tablet 1 tab PO BID 10 Days Qty: 20 0RF No Action amoxicillin-pot clavulanate 875-125 mg tablet 1 tab PO BID 7 Days Qty: 14 0RF Referrals: Rivera White [Physician] - (AOM with TM rupture right)
== END 2022-09-01 11:56 | disposition home or self-care (01) ==
PROVIDERS: Emergency Provider Emergency Medicine; PCP General Practice
DX: H66.011 Acute suppurative otitis media with spontaneous rupture of ear drum, right ear (principal)
CPT/HCPCS: 99283

== ENCOUNTER 2022-09-22 12:11 | Emergency (ER) | payer MEDICARE, OTHER, SELFPAY ==
[2022-09-22 12:33] VITALS: BP 165/61; PULSE 66; RESP 18; TEMP 36.8; O2SAT 98; BMI 26.6
--- NOTE | 2022-09-22 12:34 | ED.EAR ---
HPI - Ear Problem General Chief complaint: Ear Problems <RUSS Herrera - Last Filed: 09/22/22 12:39> Stated complaint: ear pain <RUSS Herrera - Last Filed: 09/22/22 12:39> Time Seen by Provider: 09/22/22 13:41 <RUSS Herrera - Last Filed: 09/22/22 12:39> History of Present Illness HPI Narrative: Patient complains of bilateral ear pain and buzzing in the right ear for the last 2 weeks He denies fever he denies dizziness he denies headache, no confusion, he can hear but it feels a little muffled He does complain of nasal congestion and stuffy nose for past week as well, no cough no fever no dizziness no confusion no weakness no difficulty breathing or swallowing <RUSS Garces - Last Filed: 10/07/22 10:03> Related Data Home medications: Previous Rx's Medication Instructions Recorded amoxicillin 875 mg-potassium 1 tab PO BID 7 days #14 tabs 08/23/22 clavulanate 125 mg tablet amoxicillin 875 mg-potassium 1 tab PO BID 10 days #20 tabs 09/01/22 clavulanate 125 mg tablet acetaminophen 500 mg capsule 1,000 mg PO Q8H PRN pain #20 caps 09/22/22 oxymetazoline 0.05 % nasal spray 2 spray intranasal Q12H PRN nasal 09/22/22 congestion 3 days #15 mL <RUSS Herrera - Last Filed: 09/22/22 12:39> Allergies/adverse reactions: Allergies Allergy/AdvReac Type Severity Reaction Status Date / Time aspirin [ASPIRIN] Allergy Severe FACIAL Unverified 03/17/20 19:06 SWELLING <RUSS Herrera - Last Filed: 09/22/22 12:39> [facility] Past Medical History Source: nursing notes reviewed <RUSS Garces - Last Filed: 10/07/22 10:03> Social History Social History: Social History Alcohol intake: never Advance Directives: No Advance Directives Information Provided: Yes <RUSS Herrera Last Filed: 09/22/22 12:39> Physical Exam Vital Signs: Vital Signs: Last Vital Signs Temp 98.3 F 09/22/22 12:33 Pulse 66 09/22/22 12:33 Resp 18 09/22/22 12:33 BP 165/61 H 09/22/22 12:33 Pulse Ox 98 09/22/22 12:33 O2 Del Method Room Air 09/22/22 12:33 BMI result Body Mass Index 26.6 <RUSS Herrera - Last Filed: 09/22/22 12:39> Vital Signs: Last Vital Signs Temp 98.3 F 09/22/22 12:33 Pulse 66 09/22/22 12:33 Resp 18 09/22/22 12:33 BP 165/61 H 09/22/22 12:33 Pulse Ox 98 09/22/22 12:33 O2 Del Method Room Air 09/22/22 12:33 BMI result Body Mass Index 26.6 <RUSS Garces - Last Filed: 10/07/22 10:03> General appearance is no acute distress ear exam, both left and right tympanic membranes were normal in appearance with normal color, no redness, no perforations no bulging Both ear canals were patent without debris without redness without narrowing, there was no pain with movement of the ear Mastoid area showed no redness or tenderness The nose was congested but sinuses were nontender Pharynx is clear without redness swelling or exudate, voice is normal Neck is supple Chest clear to auscultation bilateral Heart no murmur Extremities full range of motion x4 Neuro gait and balance are normal, interaction comprehension and expression are normal, cranial nerves 2-12 intact as tested, no facial asymmetry, motor is 5/5 x4 Skin no rashes <RUSS Garces - Last Filed: 10/07/22 10:03> Course Course Course Narrative: RME--66-year-old male with a past medical history otitis media, recently seen in our ED on 08/23 and 09/01 for similar symptoms complaining of persistent right ear pain radiating to face with associated tinnitus. Admits symptoms resolved after antibiotic use however return right after. Looks like patient was on Augmentin x2 TM mildly cloudy, + right temporal/upper neck tenderness. No mastoid tenderness Fully eval to be performed by ED provider <RUSS Herrera - Last Filed: 09/22/22 12:39> RME--66-year-old male with a past medical history otitis media, recently seen in our ED on 08/23 and 09/01 for similar symptoms complaining of persistent right ear pain radiating to face with associated tinnitus. Admits symptoms resolved after antibiotic use however return right after. Looks like patient was on Augmentin x2 TM mildly cloudy, + right temporal/upper neck tenderness. No mastoid tenderness Fully eval to be performed by ED provider Patient with normal ear exam, some nasal congestion but no tenderness of sinuses, has already been on antibiotics Complaint of intermittent ringing in his ears and continued pain he likely needs a referral to specialist for further evaluation of tinnitus and otalgia, no acute emergent infection now, no neurologic deficit and patient is discharged to follow with his doctor and hopefully referral to ENT <RUSS Garces - Last Filed: 10/07/22 10:03> Discharge Plan Discharge Clinical Impression: Tinnitus, Otalgia <RUSS Herrera Last Filed: 09/22/22 12:39> Patient Disposition: Home, Self-Care <RUSS Herrera Last Filed: 09/22/22 12:39> Instructions: Tinnitus (ED) <RUSS Herrera Last Filed: 09/22/22 12:39> Additional Instructions: I did not see any sign of infection in either ear The ringing in the right ear may need to be checked by specialist so follow with primary care doctor closely for referral to an rear load truck driver The pains in the ear may be from congestion so try Afrin spray for a few days to see if relieving nasal congestion helps relieve the pain feeling a pressure in the ears Return any time for fever worsening pain dizziness any worse condition or any concerns <RUSS Herrera Last Filed: 09/22/22 12:39> Prescriptions: New oxymetazoline 0.05 % spray,non-aerosol 2 spray intranasal Q12H PRN (Reason: nasal congestion) 3 Days Qty: 15 0RF acetaminophen 500 mg capsule 1,000 mg PO Q8H PRN (Reason: pain) Qty: 20 0RF No Action amoxicillin-pot clavulanate 875-125 mg tablet 1 tab PO BID 7 Days Qty: 14 0RF amoxicillin-pot clavulanate 875-125 mg tablet 1 tab PO BID 10 Days Qty: 20 0RF <RUSS Herrera - Last Filed: 09/22/22 12:39> Interventions: ED Discharge Assessment Last Done: 09/22/22 15:28 <RUSS Herrera - Last Filed: 09/22/22 12:39> Discharge Date/Time: 09/22/22 15:28 <RUSS Herrera - Last Filed: 09/22/22 12:39>
--- OUTSIDE RECORDS SUMMARY | 2022-09-22 13:47 | XMS_ITS | Continuity of Care Document ---
Author Name Unknown Organization [facility] Address [address] [place] [address]- Care Team Providers Care Bpm Developer Name Role Phone Not on Staff, PCP Primary Care Physician Unavail able Encounter [facility] Date(s): 10/08/20 - 11/07/20 [facility]/[address] [address]- Attending Physician: Manny Canales Admitting Physician: Manny Caanles Referring Physician: Admtr ArFrancis Immunizations Given and Recorded Vaccine Date Status Refusal Reason SARS-CoV-2 (COVID-19) Ad26 vaccine 1 10/08/20 Give n 1Result Comment: given by darcy wade
--- OUTSIDE RECORDS SUMMARY | 2022-09-22 13:47 | XMS_ITS ---
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 ; Pain in right foot M79.671 ; Pain in left foot M79.672 ; Flat foot [pes planus] (acquired), right foot M21.41 and Flat foot [pes planus] (acquired), left foot M21.42 IMMUNIZATIONS Vaccine Route Administration Date Status Kenalog Unknown November 06, 2021 Administered Dexamethasone Unknown November 06, 2021 Administered SOCIAL HISTORY Never Assessed REASON FOR REFERRAL FUNCTIONAL STATUS PLAN OF CARE Activity Details VITAL SIGNS Weight 160.1 lbs 2021-11-06 Height 5ft 5in in 2021-11-06 BMI 26.64 kg/m2 2021-11-06 Heart Rate 82 /min 2021-11-06 Temperature 96.9 degrees Fahrenheit Respiratory Rate 16 /min 2021-11-06 Blood pressure systolic 170 mm Hg Blood pressure diastolic 90 mm Hg 2021-10 MEDICATIONS Medication Instructions Dosage Frequency Start Date End Date Duration Status Brimonidine Tartrate 0.15 % Ophthalmic twice a day 1 drop into affected eye 12h Active Latanoprost 0.005 % Ophthalmic Once a day 1 drop into affected eye in the evening 24h Active Simethicone 80 MG Orally Twice a day for gas as needed 1 tablet after meals and at bedtime as needed Active Potassium Chloride ER 20 MEQ Orally Once a day 1 tablet with food 24h Active Verapamil HCl ER 240 MG Orally Once a day 1 capsule 24h Active hydrALAZINE HCl 25 MG Orally Twice a day 1 tablet with food 12h Active Losartan Potassium 100 MG Orally Once a day 1 tablet 24h Active Chlorthalidone 25 MG Orally Once a day 1 tablet in the morning with food 24h Active Meloxicam 7.5 MG Orally Once a day 1 tablet 24h Active Atorvastatin Calcium 20 MG Orally Once a day 1 tablet 24h Active Dorzolamide HCl-Timolol Mal 22.3-6.8 MG/ML Ophthalmic Twice a day 1 drop into affected eye 12h Active Omeprazole 20 MG Orally Once a day 1 capsule 30 minutes before morning meal 24h Active PROCEDURES Procedure Date Ordered Result Body Site INJ TRIAMCINOLONE ACETONIDE 10 MG November 06, 2021 INJ DEXAMETHASONE SODIM PHOSHATE 1 MG November 06, 2021 INJ TENDON SHEATH/LIGAMENT/FASCIA November 06, 2021 RESULTS No Results REASON FOR VISIT 4 wk f/u, former mickey patient .pain in both feet would like injections Insurance Providers Health Insurance Type Health Plan Insurance Address Health Plan Insurance Phone Health Plan Insurance Name Health Plan Coverage Dates Member ID Patient Relationship to Subscriber Patient Address Patient Phone Patient Name Patient Date of Subscriber ID Subscriber Name Subscriber Date of Group No [employer] [place] [address] [place] [address] [employer] [place] self Chris Hastings [id number] [facility] [address] [address] [facility] [address] [facility] dona Hastings [id number]
== END 2022-09-22 15:28 | disposition home or self-care (01) ==
PROVIDERS: Emergency Provider Emergency Medicine
DX: H93.11 Tinnitus, right ear (principal); H92.01 Otalgia, right ear
CPT/HCPCS: 99283

== ENCOUNTER 2023-08-14 10:37 | Outpatient (REF) | payer MEDICARE, SELFPAY | END 2023-08-14 10:38 | disposition home or self-care (01) | LOC: HO.SH 10:37 | PROVIDERS: Visit Provider General Practice | DX: H93.11 Tinnitus, right ear (principal); H90.3 Sensorineural hearing loss, bilateral | CPT/HCPCS: 92557; 92567 ==

== ENCOUNTER 2024-10-23 11:51 | Outpatient (REF) | payer MEDICARE, SELFPAY ==
--- OUTSIDE RECORDS SUMMARY | 2024-10-23 12:43 | XMS_ITS | Encounter Summary ---
Author Organization [facility] Address [address] [address] [facility] 7t [place] [address] Care Team Providers Care Drawing In Hand Name Role Phone Stephenie Rodríguez MD Primary Care Provider Reason for Referral * Consultation (Routine) - Pending Review Specialty Diagnoses / Procedures Referred By Bon centeno Referred To Contact Audiology Diagnoses Hearing loss of right ear, unspecified hearing loss type Stephenie Rodríguez MD [address] [place] [address] Phone: tel: fax: [facility] Referral ID Status Reason Start Date Expiration Date Visits Requested Visits Authorized [id number] Pending Review Specialty Services Required 10/23/2024 10/23/2025 1 1 * Consultation (Routine) - Pending Review Specialty Diagnoses / Procedures Referred By Bon centeno Referred To Contact Gastroenterology Diagnoses Screening for colon cancer Stephenie Rodríguez MD [address] [place] [address] Phone: tel: fax: [facility] [address] [place] [address] Phone: tel: fax: Referral ID Status Reason Start Date Expiration Date Visits Requested Visits Authorized [id number] Pending Review Specialty Services Required 10/23/2024 10/23/2025 1 1 Reason for Visit * Reason Comments Hypertension Encounter Details Date Type Department Care Team (Late st Contact Info) Description 10/23/2024 11:15 AM EDT Office Visit [facility] [address] [place] [address] Stephenie Rodríguez MD [address] [place] [address] Frequent urination (Primary Dx); Dietary counseling; Exercise counseling; Overweight; Screening for colon cancer; Hearing loss of right ear, unspecified hearing loss type; Primary hypertension; Bilateral calcaneal spurs; Bilateral plantar fasciitis Social History Tobacco Use Types Packs/Day Years Used Date Smoking Tobacco: Never Passive Smoke Exposure: Never Smokeless Tobacco: Never Tobacco Cessation:Counseling Given: Not Answered Depression Answer Date Recorded Patient Health Questionnaire-9 Score 1 10/23/2024 Patient Health Questionnaire-9 Score 1 10/23/2024 Last PHQ-9: Questionnaire Data Not on file 0 10/23/2024 Housing Stability Answer Date Recorded What is your housing situation today? I have artis whitman 04/16/[address] you li ve. Do you have problems with any of the following? None of the above 04/16/2023 Food Insecurity Answer Date Recorded Within the past 12 months, y ou worried that your food would run out before you got money to buy more: Never True 04/16/2023 Within the past 12 months,th e food you bought just didn't last and you didn't have enough money to get more: Never True Transportation Answer Date Recorded In the past 12 months, has l ack of transportation kept you from medical appts, meetings, work or from getting things needed for daily living? No 04/16/2023 Utilities Answer Date Recorded In the past 12 months, has t he electric, gas, oil or water company threatened to shut off services in your home? No 04/16/2023 Depression Answer Date Recorded Patient Health Questionnaire-2 Score 0 10/23/2024 Internet Access Answer Date Recorded Internet Access Q1 Yes 03/13/2024 Internet Access Q2 Not on file 03/13/2024 Sex and Gender Information Value Date Recorded Sex Assigned at Male 04/30/2022 10:31 AM EDT Legal Sex Male 10:31 AM EDT Gender Identity Male 04/30/2022 10:31 AM EDT Sexual Orientation Straight 04/30/2022 10 :31 AM EDT documented as of this encounter Last Filed Vital Signs Vital Sign Reading Time Taken Comments Blood Pressure 136/66 10/23/2024 11:16 AM EDT Pulse 67 10/23/2024 11:16 AM EDT Temperature 36.4 ??C (97.6 ??F) 10/23/2024 11:16 AM E DT Respiratory Rate 16 10/23/2024 11:16 AM EDT Oxygen Saturation 98% 10/23/2024 11:16 AM EDT Inhaled Oxygen Concentration - - Weight 71.4 kg (157 lb 6.4 oz) 10/23/2024 11:16 AM EDT Height 165.1 cm (5' 5 ) 10/23/2024 11:16 AM EDT Body Mass Index 26.19 10/23/2024 11:16 AM EDT documented in this encounter Progress Notes * Stephenie Rodríguez MD - 10/23/2024 11:15 AM EDT Images from the original note were not included. Psa SUBJECTIVE: Chris Hastings is a 68 y.o. year old male who presents for chronic disease management. Denies recent illness, ER visit, or hospitalization. Acute Concerns: Concern for frequent urination, day and night, small amounts of bland urine, no dysuria or fevers or flank pain 10/23/24 1145 POCT Urinalysis Collected: 10/23/24 1144 Final result Specimen: Urine Color, UA Yellow Protein, UA 1+ 70+ Clarity, UA Clear Urobilinogen, UA 4.0 Glucose, UA Negative Leukocytes, UA Negative Bilirubin, UA Negative Nitrite, UA Negative Ketones, UA Negative Appearance, UA clear Spec Grav, UA 1.010 QC Media Lot # [id number] Blood, UA Negative Lot# Expiration Date , pH, UA 7.5 Interim Updates and Plans: R ear pain, intermittent for months has been to ER at [facility] three times, once at [facility], and once here. Feels tinnitus in R ear, feeling of blockade of sound On prn decongestant/antihistamine [facility] Audiology for f/u after initial visit 08/2023 for hearing aid trial (referral replaced today 10/23/24), also followup with ENT after that visit for ongoing tinnitus HTN: 136/66 in clinic Home BP readings 140-150s/80-90s No symptoms of BARBER< chest pain, arm pain, SOB Diagnosed >20 years ago. On Verapamil 360mg, Losartan 100mg, hydralazine 25mg QID and chlorthalidone 25mg Hyperlipidemia: on atorvastatin 20mg GERD: on omeprazole for heartburn, and Simethicone for gas Glaucoma: being seen again by Dr Nair at [facility], his vision is improving with regular careand treatment Plantar fasciitis and tight heel cords Seeing Dr Fraser at [facility] for care Referred for orthotics, but he cannot find the office Health maintenance: Colonoscopy: unsure when his last one, will re-refer to [facility] GI service Imms: due for flu, pneumococcal, COVID Patient Active Problem List Diagnosis Hyperlipidemia Hypertensive disorder Bilateral plantar fasciitis Gastroesophageal reflux disease Glaucoma Chronic otitis media of right ear with effusion Tinnitus of both ears Allergic rhinitis Bilateral calcaneal spurs Hearing loss in right ear Osteoarthritis Frequent urination History reviewed. No pertinent surgical history. No family history on file. Social History Social History Narrative Does not drink alcohol, smoke or do illicit drugs Lives with sister, niece, grandnieces Review of Systems Constitutional: Negative. Respiratory: Negative. Cardiovascular: Negative. Gastrointestinal: Negative. Genitourinary: Positive for frequency. Negative for decreased urine volume, difficulty urinating, dysuria, enuresis, flank pain, genital sores, hematuria and urgency. Musculoskeletal: Negative. OBJECTIVE: Vitals: 10/23/24 1116 BP: 136/66 BP Location: Right arm Patient Position: Sitting BP Cuff Size: Adult Pulse: 67 Resp: 16 Temp: 97.6 ??F (36.4 ??C) TempSrc: Oral SpO2: 98% Weight: 157 lb 6.4 oz (71.4 kg) Height: 5' 5 (1.651 m) Physical Exam Vitals and nursing note reviewed. Constitutional: Appearance: Normal appearance. He is normal weight. HENT: Head: Normocephalic and atraumatic. Right Ear: Tympanic membrane, ear canal and external ear normal. Left Ear: Tympanic membrane, ear canal and external ear normal. Nose: Nose normal. Mouth/Throat: Mouth: Mucous membranes are moist. Pharynx: Oropharynx is clear. Eyes: Extraocular Movements: Extraocular movements intact. Conjunctiva/sclera: Conjunctivae normal. Pupils: Pupils are equal, round, and reactive to light. Cardiovascular: Rate and Rhythm: Normal rate and regular rhythm. Pulses: Normal pulses. Heart sounds: Normal heart sounds. Pulmonary: Effort: Pulmonary effort is normal. Breath sounds: Normal breath sounds. Abdominal: General: Abdomen is flat. Bowel sounds are normal. There is no distension. Palpations: Abdomen is soft. Musculoskeletal: General: Normal range of motion. Cervical back: Normal range of motion and neck supple. Skin: General: Skin is warm and dry. Capillary Refill: Capillary refill takes less than 2 seconds. Neurological: General: No focal deficit present. Mental Status: He is alert and oriented to person, place, and time. Psychiatric: Mood and Affect: Mood normal. Behavior: Behavior normal. ASSESSMENT/PLAN Problem List Items Addressed This Visit Hypertensive disorder Current Assessment & Plan At goal <140/90 at home and here Continue Verapamil 360mg daily, Chlorthalidone 25mg daily, Hydralazine 25mg QID, Losartan 100mg Lab Results Component Value Date CREATININE 0.97 07/22/2021 The 10-year ASCVD risk score (Tatiana PERDOMO, et al., 2019) is: 19.3% Values used to calculate the score: Age: 68 years Sex: Male Is Non- : No Diabetic: No Tobacco smoker: No Systolic Blood Pressure: 136 mmHg Is BP treated: Yes HDL Cholesterol: 48 mg/dL Total Cholesterol: 156 mg/dL On Lipitor 20mg daily Bilateral plantar fasciitis Bilateral calcaneal spurs Hearing loss in right ear Overview traumatic Relevant Orders Referral to Audiology Frequent urination - Primary Current Assessment & Plan UA with mild proteinuria PSA pending Fluid restriction 2 hours before bedtime Relevant Orders PSA,Total POCT Urinalysis (Completed) Other Visit Diagnoses Dietary counseling Exercise counseling Overweight Screening for colon cancer Relevant Orders Referral to Gastroenterology Follow Up: 4 months or sooner prn Allergies Allergen Reactions Aspirin Other reaction(s): Facial swelling Current Outpatient Medications: Rhopressa 0.02 % solution, PLACE 1 DROP IN THE RIGHT EYE EVERY DAY AT BEDTIME, Disp: , Rfl: atorvastatin (Lipitor) 20 MG tablet, Take 1 tablet (20 mg) by mouth Once per day., Disp: 90 tablet,Rfl: 3 brimonidine (AlphaGAN P) 0.15 % ophthalmic solution, INSTILL 1 DROP IN EACH EYE TWICE DAILY, Disp: 5 mL, Rfl: 5 carbamide peroxide (Debrox) 6.5 % otic solution, Administer 5-10 drops into affected ear(s) 2 timesdaily for 4 days., Disp: 30 mL, Rfl: 0 cetirizine (ZyrTEC) 10 MG tablet, TAKE 1 TABLET BY MOUTH EVERY MORNING, Disp: 90 tablet, Rfl: 3 chlorthalidone (Hygroton) 25 MG tablet, TAKE 1 TABLET BY MOUTH EVERY DAY, Disp: 90 tablet, Rfl: 3 dicyclomine (Bentyl) 10 MG capsule, TAKE 1 CAPSULE BY MOUTH TWICE DAILY FOR GAS OR FOR CRAMPS, Disp: 60 capsule, Rfl: 11 dorzolamide-timolol (Cosopt) 2-0.5 % ophthalmic solution, PLACE 1 DROP IN EACH EYE TWICE DAILY, Disp: 10 mL, Rfl: 1 fluticasone (Flonase) 50 MCG/ACT nasal spray, Administer 1 spray into each nostril in the morning. Shake gently. Before first use, prime pump. After use, clean tip and replace cap., Disp: 16 g, Rfl: 11 hydrALAZINE (Apresoline) 25 MG tablet, TAKE 1 TABLET BY MOUTH FOUR TIMES DAILY, Disp: 360 tablet, Rfl: 3 latanoprost (Xalatan) 0.005 % ophthalmic solution, INSTILL 1 DROP IN EACH EYE EVERY DAY IN THE EVENING, Disp: 2.5 mL, Rfl: 11 losartan (Cozaar) 100 MG tablet, Take 1 tablet (100 mg) by mouth in the morning., Disp: 90 tablet, Rfl: 3 meloxicam (Mobic) 7.5 MG tablet, TAKE 1 TABLET BY MOUTH EVERY DAY, Disp: 90 tablet, Rfl: 3 omeprazole (PriLOSEC) [address] capsule, TAKE 1 CAPSULE BY MOUTH ONCE DAILY BEFORE A MEAL, Disp: 90 capsule, Rfl: 3 Simethicone Ultra Strength 180 MG capsule, TAKE 1 CAPSULE BY MOUTH TWICE DAILY NEEDED FOR GAS, Disp: , Rfl: verapamil ER (Verelan) 360 MG 24 hr capsule, Take 1 capsule (360 mg) by mouth at bedtime. Do not crush or chew., Disp: 90 capsule, Rfl: 3 Latvian Translation: Provided by [facility] staff member KENRICK Gilliam documented in this encounter Miscellaneous Notes * Assessment & Plan Note - Stephenie Rodríguez MD - 10/23/2024 12:33 PM EDT Associated Problem(s): Frequent urination UA with mild proteinuria PSA pending Fluid restriction 2 hours before bedtime * Assessment & Plan Note - Stephenie Rodríguez MD - 10/23/2024 12:32 PM EDT Associated Problem(s): Hypertensive disorder At goal <140/90 at home and here Continue Verapamil 360mg daily, Chlorthalidone 25mg daily, Hydralazine 25mg QID, Losartan 100mg Lab Results Component Value Date CREATININE 0.97 07/22/2021 The 10-year ASCVD risk score (Tatiana PERDOMO, et al., 2019) is: 19.3% Values used to calculate the score: Age: 68 years Sex: Male Is Non- : No Diabetic: No Tobacco smoker: No Systolic Blood Pressure: 136 mmHg Is BP treated: Yes HDL Cholesterol: 48 mg/dL Total Cholesterol: 156 mg/dL On Lipitor 20mg daily documented in this encounter Plan of Treatment Scheduled Orders Name Type Priority Associated Diagnoses Orde r Schedule PSA,Total Lab Routine Frequent urination Expected: 10/23/2024, Expires: 10/23/2025 Scheduled Referrals Name Type Priority Associated Diagnoses Order Schedule Referral to Gastroenterology Outpatient Referral Routine Screening for colon cancer Expected: 10/23/2024 (Approximate), Expires: 10/23/2025 Referral to Audiology Outpatient Referral Routine Hearing loss of right ear, unspecified hearing loss type Expected: 10/23/2024 (Approximate), Expires: 10/23/2025 documented as of this encounter Procedures Procedure Name Priority Date/Time Associated Diagnosis Comments POCT URINALYSIS DIPSTICK Routine 10/23/2024 11:44 AM EDT Frequent urination documented in this encounter Results * POCT Urinalysis (10/23/2024 11:44 AM EDT) Color, UA Yellow Clarity, UA Clear Glucose, UA Negative Bilirubin, UA Negative Ketones, UA Negative Spec Grav, UA 1.010 Blood, UA Negative Negative, None Detected pH, UA 7.5 Protein, UA 1+ 70+ Comment:30mg/dl Urobilinogen, UA 4.0 Leukocytes, UA Negative Negative, Rare, Trace Nitrite, UA Negative Negative, None Detected Appearance, UA clear QC Media Lot # [id number] Lot# Expiration Date Urine 10/23/2024 11:4 4 AM EDT Stephenie Rodríguez MD POINT OF CARE TEST ENTER/EDIT ORDERABLES Final Result documented in this encounter Visit Diagnoses Diagnosis Frequent urination- Primary Urinary frequency Dietary counseling Dietary surveillance and counseling Exercise counseling Overweight Screening for colon cancer Special screening for malignant neoplasms, colon Hearing loss of right ear, unspecified hearing loss type Primary hypertension Unspecified essential hypertension Bilateral calcaneal spurs Bilateral plantar fasciitis documented in this encounter Additional Health Concerns Assessment Noted Time PHQ-9 Depression Total Score: 1 10/24/19 25 11:18 AM EDT documented as of this encounter Care Teams Drawing In Hand Relationship Specialty Start Date End Date Stephenie Rodríguez MD [address] [place] [address] PCP - General Family Medicine 03/03/21 documented as of this encounter
--- OUTSIDE RECORDS SUMMARY | 2024-10-23 12:43 | XMS_ITS | Patient Health Record ---
Author Organization [facility] Address [address] [facility] [place] [address] Care Team Providers Care Green Building Materials Designer Name Role Phone cameron nava Primary Care Provider Unavailabl e Allergies Allergen (clinical drug ingredient) Drug/Non Drug Allergy documented on EMR Reaction Allergy Type Onset Date Status aspirin Aspirin swelling/edema Drug Allergy Ac tive Reason For Referral No Information Medications Medication SIG (Take, Route, Frequency, Duration) Notes Start Date End Date Status Losartan Potassium 100 MG 1 tablet Orally Once a day Active Dorzolamide HCl-Timolol Mal 22.3-6.8 MG/ML 1 drop into affected eye Ophthalmic Twice a day 1 drop in each eye bid Active Brimonidine Tartrate 0.15 % 1 drop into affected eye Ophthalmic twice a day Active Latanoprost 0.005 % 1 drop into affected eye in the evening Ophthalmic Once a day 1 drop in each eye at night time Active Omeprazole 20 MG 1 capsule 30 minutes before morning meal Orally Once a day Active Chlorthalidone 25 MG 1 tablet in the morning with food Orally Once a day Active Meloxicam 7.5 MG 1 tablet Orally Once a day Active Verapamil HCl ER 240 MG 1 capsule Orally Once a day Active Simethicone 80 MG 1 tablet after meals and at bedtime as needed Orally Twice a day for gas as needed 180mg Active Atorvastatin Calcium 20 MG 1 tablet Orally Once a day Active Potassium Chloride ER 20 MEQ 1 tablet with food Orally Once a day Active hydrALAZINE HCl 25 MG 1 tablet with food Orally Twice a day Active Plan Of Treatment Pending Test Test Name Order Date INJ TENDON SHEATH/LIGAMENT/FASCIA 2021 Insurance Providers Payer Name Payer Address Payer Phone Subscriber Number Group Number Insured Name Patient Relationship to Insured Coverage Start Date Coverage End Date [facility] [address] [address] [place] [address] [id number] Chris Hastings Self - patient is the insured Medications Administered Medication Instructions Date of Administration Dosage Notes Dexamethasone 11/06/2021 0.5 mL Kenalog 11/06/2021 0.5 mL Medical (General) History Medical History History ICD Code hyperlipidemia hypertension GERD (gastroesophageal reflux disease) allergic rhinitis glaucoma hearing loss in right ear osteoarthritis bilateral calcaneal spurs + COVID August 2019 Surgical History Surgery Date(Month/Year) 5mm sigmoid colon polyp: not a polyp 10/2016
--- OUTSIDE RECORDS SUMMARY | 2024-10-23 12:43 | XMS_ITS | Encounter Summary ---
Author Organization [email or web address] Address [address] [facility] [address] [place] [address] Care Team Providers Care Rigger Third Name Role Phone Stephenie Rodríguez MD Primary Care Provider [phone] Encounter Details Date Type Department Care Team (Latest Contact Info) Description 10/27/2018 Abstract C CONVERSIONS Dental, Provider, DDS Social History Tobacco Use Types Packs/Day Years Used Date Smoking Tobacco: Never Assessed Sex and Gender Information Value Date Recorded Sex Assigned at Male 04/30/2022 10:31 AM EDT Legal Sex Male 10:31 AM EDT Gender Identity Male 04/30/2022 10:31 AM EDT Sexual Orientation Straight 04/30/2022 10 :31 AM EDT documented as of this encounter Plan of Treatment Not on file documented as of this encounter Visit Diagnoses Not on filedocumented in this encounter Care Teams Rigger Third Relationship Specialty Start Date End Date Stephenie Rodríguez MD [address] [place] [address] PCP - General Family Medicine 03/03/21 documented as of this encounter
--- OUTSIDE RECORDS SUMMARY | 2024-10-23 12:43 | XMS_ITS | Encounter Summary ---
Author Organization [facility] Address [address] [facility] [address] [place] [address] Care Team Providers Care Spa Host Name Role Phone Stephenie Rodríguez MD Primary Care Provider [phone] Reason for Visit * Reason Comments Med Refill Encounter Details Date Type Department Care Team (Late st Contact Info) Description 04/29/2023 Refill [facility] [address] [place], [place] [phone] Stephenie Rodríguez MD [address] [place], [place] [phone] Glaucoma, unspecified glaucoma type, unspecified laterality Social History Tobacco Use Types Packs/Day Years Used Date Smoking Tobacco: Never Passive Smoke Exposure: Never Smokeless Tobacco: Never Housing Stability Answer Date Recorded What is [...] off services in your home? No 04/16/2023 Sex and Gender Information Value Date Recorded Sex Assigned at Male 04/30/2022 10:31 AM EDT Legal Sex Male 10:31 AM EDT Gender Identity Male 04/30/2022 10:31 AM EDT Sexual Orientation Straight 04/30/2022 10 :31 AM EDT documented as of this encounter Plan of Treatment Not on file documented as of this encounter Visit Diagnoses Diagnosis Glaucoma, unspecified glaucoma type, unspecified laterality documented in this encounter Care Teams Spa Host Relationship Specialty Start Date End Date Stephenie Rodríguez MD [address] [place] [address] PCP - General Family Medicine 03/03/21 documented as of this encounter
--- OUTSIDE RECORDS SUMMARY | 2024-10-23 12:43 | XMS_ITS ---
Author Organization [facility] Address [address] [address] Care Team Providers Care Suspension Cord Tier Name Role Phone cameron nava Primary Care Provider GENNARO Romero [phone] REASON FOR VISIT Balance Encounters Encounter Location Date Provider Diagnosis [facility] [address] [address] 10/23/2023 GENNARO MCCRACKEN Plan Of Treatment No Information Progress Notes * Chris HASTINGSDOB:1955 ( 67 yo M)Acc No.[id number]:10/23/2023 Patient:?Chris HASTINGS :1955???Age:67 Y???Sex:Male Phone: Address:[address] [place] [address] [place] [address] * true * Date:? Generated for Luis vidal/Suha/eTransmitting on:?10/23/2024 08:28 AM EDT
--- OUTSIDE RECORDS SUMMARY | 2024-10-23 12:43 | XMS_ITS | Encounter Summary ---
Author Organization [employer] Address [address] [facility] [address] [facility] [address] [place] [address] Care Team Providers Care Clinical Team Manager Name Role Phone Stephenie Rodríguez MD Primary Care Provider [phone] Encounter Details Date Type Department Care Team (Latest Contact Info) Description 10/23/2024 Travel Social History Tobacco Use Types Packs/Day Years Used Date Smoking Tobacco: Never Passive Smoke Exposure: Never Smokeless Tobacco: Never Depression Answer Date Recorded Patient Health Questionnaire-9 [...] Diagnoses Not on filedocumented in this encounter Additional Health Concerns Assessment Noted Time PHQ-9 Depression Total Score: 1 10/24/19 25 11:18 AM EDT documented as of this encounter Care Teams Clinical Team Manager Relationship Specialty Start Date End Date Stephenie Rodríguez MD [address] [place] [id number] PCP - General Family Medicine 03/03/21 documented as of this encounter
--- OUTSIDE RECORDS SUMMARY | 2024-10-23 12:43 | XMS_ITS | Encounter Summary ---
Author Organization [employer] Address [address] [facility] 7[address] [place] [address] Care Team Providers Care Crate Icer Name Role Phone Stephenie Rodríguez MD Primary Care Provider [phone] Encounter Details Date Type Department Care Team (Late st Contact Info) Description 07/19/2022 Orders Only [facility] [address] [place] [address] Bertha Mendosa LPN Social History Tobacco Use Types Packs/Day Years [...] on filedocumented in this encounter Care Teams Crate Icer Relationship Specialty Start Date End Date Stephenie Rodríguez MD [address] [place] [address] PCP - General Family Medicine 03/03/21 documented as of this encounter
--- OUTSIDE RECORDS SUMMARY | 2024-10-23 12:43 | XMS_ITS | Encounter Summary ---
Author Organization [employer] [facility] Address [address] [facility] 7t [place] [address] Care Team Providers Care Emergency Department Coordinator Name Role Phone Stephenie Rodríguez MD Primary Care Provider [phone] Encounter Details Date Type Department Care Team (Late st Contact Info) Description 08/21/2022 Orders Only [facility] [address] [place], [place] [phone] Noemi Felix LPN Social History Tobacco Use Types Packs/Day [...] on filedocumented in this encounter Care Teams Emergency Department Coordinator Relationship Specialty Start Date End Date Stephenie Rodríguez MD [address] [place] [address] PCP - General Family Medicine 03/03/21 documented as of this encounter
--- OUTSIDE RECORDS SUMMARY | 2024-10-23 12:43 | XMS_ITS | Clinical Summary ---
Author Organization [address] [facility] Address [address] [place] [address] Phone Care Team Providers Care Fire Protection Inspector Name Role Phone GerardoPhil Primary Care Provider + Allergies Active Allergy Reactions Criticality Noted Date Comments Aspirin Swelling 03/28/2016 Medications atorvastatin (LIPITOR) 10 mg tablet Take 1 tablet by mouth daily. 12/05/2020 Active brimonidine (ALPHAGAN) 0.2 % ophthalmic solution 1 drop in each eye bid Active chlorthalidone (HYGROTON) 25 mg tablet Take 1 tablet by mouth daily. 10/12/2020 Active dorzolamide HCl/timolol maleat (COSOPT OPHT) apply to the eye. 1 drop in each eye bid Active LATANOPROST OPHT apply to the eye. 1 drop in each eye at night time Active meloxicam (MOBIC) 7.5 mg tablet Take 1 tablet by mouth daily. 11/21/2020 Active omeprazole (PriLOSEC) [address] capsule TOME 1 CAPSULA POR VIA ORAL TODOS [place] 10/13/2020 Active potassium chloride 20 mEq tablet extended release Take 1 tablet by mouth daily. 12/06/2020 Active simethicone (MYLICON) 80 mg chewable tablet Take 1 Tab by mouth at bedtime as needed for Flatulence. 08/19/2020 Active verapamil SR (CALAN-SR) 240 mg CR tablet Take 1 tablet by mouth at bedtime. 12/22/2020 Active Hospital, Clinic, or Other Facility Administered Medication Ordered Dose Route Frequency Start Date End Date Status lidocaine (PF) (XYLOCAINE-MPF) 1 % injection 0.5 mLIndications:Planta r fascial fibromatosis .5 mL inj Once PRN Procedure 10/08/2024 10/08/2024 Ended lidocaine (PF) (XYLOCAINE-MPF) 1 % injection 0.5 mLIndications:Planta r fascial fibromatosis .5 mL inj Once PRN Procedure 10/08/2024 10/08/2024 Ended triamcinolone acetonide (KENALOG-40) 40 mg/mL injection 20 mgIndications:Planta r fascial fibromatosis 20 mg IAtc Once PRN Procedure 10/08/2024 10/08/2024 Ended triamcinolone acetonide (KENALOG-40) 40 mg/mL injection 20 mgIndications:Planta r fascial fibromatosis 20 mg IAtc Once PRN Procedure 10/08/2024 10/08/2024 Ended Active Problems Problem Noted Date Diagnosed Date Gastroesophageal reflux disease 12/16/2019 Allergic rhinitis 09/12/2016 Hyperlipidemia 04/02/2016 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 Glaucoma 03/28/2016 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 Hypertension 03/28/2016 Osteoarthritis 03/28/2016 Encounters Date Type Department Care Team Description 10/08/2024 2:15 PM EDT Office Visit Orthopedic Surgery [address] [phone] Adolfo Fraser DPM Plantar fascial fibromatosis (Primary Dx); Follow-up exam; Equinus contracture of ankle 09/03/2024 2:00 PM EST Consult Orthopedic Surgery [address] [phone] Adolfo Fraser DPM Plantar fascial fibromatosis (Primary Dx); Equinus contracture of ankle from Last 3 Months Immunizations Name Administration Dates Next Due Influenza trivalent, with pr eservative (Fluzone; Afluria) 6mo and older 03/28/2016 Tdap Tetanus diptheria acell ular pertussis (Boostrix; Adacel) 7yo and older 09/12/2016 Surgical History Surgery Date Site/Laterality Comments COLONOSCOPY 07/05/2016 PROCEDURE: HISTORICAL COLONOSCOPY; COMMENT: 5 mm sigmoid colon polyp: not a polyp. 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 DX:Allan ateral calcaneal spurs Allergic rhinitis 09/12/2016 DX:Allergic rh initis Gastroesophageal reflux disease 12/16/2019 DX:Gastroesophageal reflux disease Family History Medical History Relation Name Comments Glaucoma Mother Breast cancer Sister 1 Blindness Neg Hx Cataracts Neg Hx Macular degeneration Neg Hx Strabismus Neg Hx Relation Name Status Comments Daughter Father throat cancer, smoker Mother HTN, DM, arthri tis Sister 1 Alive Sister 2 Alive breast cancer Son 1 Alive Son 2 Alive Son 3 Alive Social History Tobacco Use Types Packs/Day Years Used Date Smoking Tobacco: Never Smokeless Tobacco: Never Alcohol Use Standard Drinks/Week Comments No 0 (1 standard drink = 0.6 oz pur e alcohol) Sex and Gender Information Value Date Recorded Sex Assigned at Not on file Legal Sex Male 5:07 PM EST Gender Identity Not on file Sexual Orientation Not on file Obstetrics History Last Filed Vital Signs Vital Sign Reading Time Taken Comments Blood Pressure - - Pulse - - Temperature - - Respiratory Rate - - Oxygen Saturation - - Inhaled Oxygen Concentration - - Weight 72.6 kg (160 lb) 10/08/2024 2:04 PM EDT Height 165.1 cm (5' 5 ) 10/08/2024 2:04 PM EDT Body Mass Index 26.63 10/08/2024 2:04 PM EDT Plan of Treatment Upcoming Encounters Date Type Department Care Team (Late st Contact Info) Description 12/08/2024 2:30 PM EDT Office Visit Orthopedic Surgery - [place] [address] [phone] Adolfo Fraser, DPEvelia [address] [address] Health Maintenance Due Date Last Done Comments Depression Screening 06/09/2022 Falls Risk Assessment 06/09/2022 Medicare Annual Wellness Visit 06/09/2022 Social Influencers of Health Screening 06/09/2022 Hypertension/CHF/CAD Annual BMP Blood Test 06/15/2022 07/27/2020 COVID-19 Vaccine (4 - 2023-2 5 season) 2024 11/10/2021, 05/24/2021, 10/08/2020 Colorectal Cancer Screening: Colonoscopy 07/05/2026 07/05/2016 DTaP,Tdap,and Td Vaccines (2 - Td or Tdap) 09/12/2026 09/12/2016 Cholesterol Screening (Lipid Panel) 04/13/2027 04/13/2022, 06/02/2020 RSV Immunization Adult Patients (1 - 1-dose 75+ series) 2029 Hepatitis C Screening Completed 10/15/2016 Pneumococcal Vaccine: 50+ Years Completed 07/12/2023 Zoster Vaccines Completed 07/12/2023, 04/19/2023, 10/14/2016 Influenza Vaccine Completed 05/27/2024, 04/29/2023, 03/28/2016 HIB Vaccines Aged Out No longer eligi ble based on patient's age to complete this topic HPV Vaccines Aged Out No longer eligi ble based on patient's age to complete this topic Hepatitis A Vaccines Aged Out No long er eligible based on patient's age to complete this topic Hepatitis B Vaccines Aged Out No long er eligible based on patient's age to complete this topic IPV Vaccines Aged Out No longer eligi ble based on patient's age to complete this topic MMR Vaccines Aged Out No longer eligi ble based on patient's age to complete this topic Meningococcal ACWY Vaccine Aged Out N o longer eligible based on patient's age to complete this topic Meningococcal B Vaccine Aged Out No l onger eligible based on patient's age to complete this topic RSV Immunization Patients Under 20 months Aged Out No longer eligible b ased on patient's age to complete this topic Varicella Vaccines Aged Out No longer eligible based on patient's age to complete this topic Procedures Procedure Name Priority Date/Time Associated Diagnosis Comments XR FOOT 3+ VIEWS BILAT Routine 10/08/2024 2:36 PM EDT Follow-up exam INJECTION TENDON OR LIGAMENT Routine 10/08/2024 2:15 PM EDT Plantar fascial fibromatosis INJECTION TENDON OR LIGAMENT Routine 10/08/2024 2:15 PM EDT Plantar fascial fibromatosis INJECTION TENDON OR LIGAMENT Routine 09/03/2024 2:00 PM EST Plantar fascial fibromatosis INJECTION TENDON OR LIGAMENT Routine 09/03/2024 2:00 PM EST Plantar fascial fibromatosis ANNUAL BMP BLOOD TEST Routine 07/27/2020 LIPID PANEL Routine 06/02/2020 HEPATITIS C SCREENING Routine 10/15/2016 COLONOSCOPY Routine 07/05/2016 from Last 3 Months or Most Recently Relevant to Health Maintenance Results * XR Foot 3+ Views bilat (10/08/2024 2:36 PM EDT) Anatomical Region Laterality Modality Lower Extremities, Foot Bilateral Computed Radiography Narrative 10/23/2024 11:35 AM EDT Right foot ??3 views No fracture. No radiopaque foreign joint spaces ?? Arthritis mild ? Foot position rectus Normal talus navicular position normal calcaneal inclination normal symes line talus navicular joint to calcaneal cuboid joint Retro and infracalcaneal spurring noted Left foot 3 views No fracture. No radiopaque foreign joint spaces ?? Arthritis mild ? Foot position rectus Normal talus navicular position normal calcaneal inclination normal symes line talus navicular joint to calcaneal cuboid joint Retro and infracalcaneal spurring noted us Adolfo Fraser DPM IMG XR PROCEDURES Final R esult * Injection tendon or ligament (10/08/2024 2:15 PM EDT) Narrative Adolfo Fraser DPM - 10/08/2024 2:15 PM EDT Adolfo Fraser DPM ? 10/08/2024 ??7:03 PM Injection tendon or ligament Indications: pain Details: 25 G needle Medications: 0.5 mL lidocaine (PF) 1 %; 20 mg triamcinolone acetonide 40 mg/mL Informed Consent: ??Site: ??Foot ligament tendon us Adolfo Fraser DPM IN CLINIC/BEDSIDE ORDERAB LES Final Result * Injection tendon or ligament (10/08/2024 2:15 PM EDT) Adolfo Godoy DPM - 10/08/2024 2:15 PM EDT Adolfo Fraser DPM ? 10/08/2024 ??7:03 PM Injection tendon or ligament Indications: pain Details: 25 G needle Medications: 0.5 mL lidocaine (PF) 1 %; 20 mg triamcinolone acetonide 40 mg/mL Informed Consent: ??Site: ??Foot ligament tendon us Adolfo Fraser DPM IN CLINIC/BEDSIDE ORDERAB LES Final Result * Injection tendon or ligament (09/03/2024 2:00 PM EST) Adolfo Godoy DPM - 09/03/2024 2:00 PM EST Adolfo Fraser DPM ? 09/03/2024 ??6:04 PM Injection tendon or ligament Indications: pain Details: 25 G needle Medications: 0.5 mL lidocaine (PF) 1 %; 20 mg triamcinolone acetonide 40 mg/mL Informed Consent: ??Site: ??Foot ligament tendon us Adolfo Fraser DPM IN CLINIC/BEDSIDE ORDERAB LES Final Result * Injection tendon or ligament (09/03/2024 2:00 PM EST) Adolfo Godoy DPM - 09/03/2024 2:00 PM EST Adolfo Fraser DPM ? 09/03/2024 ??6:04 PM Injection tendon or ligament Indications: pain Details: 25 G needle Medications: 0.5 mL lidocaine (PF) 1 %; 20 mg triamcinolone acetonide 40 mg/mL Informed Consent: ??Site: ??Foot ligament tendon Adolfo Fraser DPM IN CLINIC/BEDSIDE ORDERAB LES Final Result * Annual BMP Blood Test (07/27/2020) Annual BMP Blood Test abstracted us Historical Provider MD HEALTH MAINTENANCE Final Result * (ABNORMAL) Lipid panel (06/02/2020) Pathologist [facility] LDL/HDL Ratio 5(A) 0 - 4 Triglycerides 134 0 - 150 mg/dL Cholesterol 240(A) 0 - 200 mg/dL HDL 50 >=40 mg/dL LDL Cholesterol 164(A) 0 - 100 mg/dL Blood Venous blood specimen / Unknown [facility] Provider LAB BLOOD ORDERABLES Doreen l Result * Hepatitis C Screening (10/15/2016) Pathologist [facility] Hepatitis C Screening abstracted [facility] Provider HEALTH MAINTENANCE Final Result * Colonoscopy (07/05/2016) Pathologist [facility] Colonoscopy negative, abstracted Anatomical Region Laterality Modality Other [facility] Provider HEALTH MAINTENANCE Final Result from Last 3 Months or Most Recently Relevant to Health Maintenance Insurance [employer] MEDICARE MEDICAID - [place] [employer] MEDICARE Care Teams Fire Protection Inspector Relationship Specialty Start Date End Date Phil Gerardo DO [facility] [address] [place] [phone] PCP - General Internal Medicine 12/23/20
--- OUTSIDE RECORDS SUMMARY | 2024-10-23 12:43 | XMS_ITS | Encounter Summary ---
Author Organization [employer] Address [address] [facility] 7t [place] [address] Care Team Providers Care Union Organiser Name Role Phone Stephenie Rodríguez MD Primary Care Provider [phone] Reason for Visit * Reason Onset Date Comments Chart Prep 10/21/2024 Encounter Details Date Type Department Care Team ([facility] st Contact Info) Description 10/21/2024 Telephone [facility] [address] [place], [place] [phone] Stephenie Rodríguez MD [address] [place], [place] [phone] Chart Prep Social History Tobacco Use Types Packs/Day Years Used Date Smoking Tobacco: Never Passive Smoke Exposure: Never Smokeless Tobacco: Never Housing Stability Answer Date Recorded What is your housing situation today? I have artistomer whitman 04/16/[address] you [...] off services in your home? No 04/16/2023 Internet Access Answer Date Recorded Internet Access Q1 Yes 03/13/2024 Internet Access Q2 Not on file 03/13/2024 Sex and Gender Information Value Date Recorded Sex Assigned at Male 04/30/2022 10:31 AM EDT Legal Sex Male 10:31 AM EDT Gender Identity Male 04/30/2022 10:31 AM EDT Sexual Orientation Straight 04/30/2022 10 :31 AM EDT documented as of this encounter Miscellaneous Notes * Telephone Encounter - Theresa Cordova MA - 10/21/2024 10:58 AM EDT Chart Prep Labs: not applicable Images: not applicable Referrals: complete Vaccines due: yes Screenings: colonoscopy Overdue care gaps: SBIRT, SHAYY-7, Disability screen, and Tobacco documented in this encounter Plan of Treatment Not on file documented as of this encounter Visit Diagnoses Not on filedocumented in this encounter Care Teams Union Organiser Relationship Specialty Start Date End Date Stephenie Rodríguez MD [address] [place] [address] PCP - General Family Medicine 03/03/21 documented as of this encounter
--- OUTSIDE RECORDS SUMMARY | 2024-10-23 12:43 | XMS_ITS | Encounter Summary ---
Author Organization [employer] [facility] Address [address] [facility] [address]t [place] [address] Care Team Providers Care Clinical Marketing Manager Name Role Phone Stephenie Rodríguez MD Primary Care Provider [phone] Reason for Visit * Reason Comments Med Refill Encounter Details Date Type Department Care Team (Late st Contact Info) Description 06/04/2022 Refill [facility] [address] [place], [place] [phone] Stephenie Rodríguez MD [address] [place], [place] [phone] Social History Tobacco Use Types Packs/Day Years [...] on filedocumented in this encounter Care Teams Clinical Marketing Manager Relationship Specialty Start Date End Date Stephenie Rodríguez MD [address] [place], [place] [phone] PCP - General Family Medicine 03/03/21 documented as of this encounter
--- OUTSIDE RECORDS SUMMARY | 2024-10-23 12:43 | XMS_ITS | Clinical Summary ---
Author Organization [employer] Address [address] [facility] 7t [place] [address] Care Team Providers Care Tile Grinder Name Role Phone Stephenie Rodríguez MD Primary Care Provider [phone] Allergies Active Allergy Reactions Criticality Noted Date Comments Aspirin 09/26/2017 Other reaction(s): Facial swelling Medications Simethicone Ultra Strength 180 MG capsule TAKE 1 CAPSULE BY MOUTH TWICE DAILY NEEDED FOR GAS 10/27/19 22 Active fluticasone (Flonase) 50 MCG/ACT nasal spray Administer 1 spray into each nostril in the morning. Shake gently. Before first use, prime pump. After use, clean tip and replace cap. 16 g 11 10/06/19 23 Active hydrALAZINE (Apresoline) 25 MG tabletIndicatio ns:Primary hypertension,Es sential hypertension TAKE 1 TABLET BY MOUTH FOUR TIMES DAILY 360 tablet 3 11/20/19 24 Active omeprazole (PriLOSEC) [address] capsule TAKE 1 CAPSULE BY MOUTH ONCE DAILY BEFORE A MEAL 90 capsule 3 12/02/19 24 Active dicyclomine (Bentyl) 10 MG capsule TAKE 1 CAPSULE BY MOUTH TWICE DAILY FOR GAS OR FOR CRAMPS 60 capsule 11 01/21/20 24 Active dorzolamide-ashly olol (Cosopt) 2-0.5 % ophthalmic solution PLACE 1 DROP IN EACH EYE TWICE DAILY 10 mL 1 03/03/20 24 Active losartan (Cozaar) 100 MG tabletIndicatio ns:Essential hypertension Take 1 tablet (100 mg) by mouth in the morning. 90 tablet 3 03/09/20 24 Active chlorthalidone (Hygroton) 25 MG tablet TAKE 1 TABLET BY MOUTH EVERY DAY 90 tablet 3 04/20/20 24 Active brimonidine (AlphaGAN P) 0.15 % ophthalmic solutionIndicat ions:Glaucoma, unspecified glaucoma type, unspecified laterality INSTILL 1 DROP IN EACH EYE TWICE DAILY 5 mL 5 06/08/20 24 Active latanoprost (Xalatan) 0.005 % ophthalmic solutionIndicat ions:Glaucoma, unspecified glaucoma type, unspecified laterality INSTILL 1 DROP IN EACH EYE EVERY DAY IN THE EVENING 2.5 mL 11 06/08/20 24 Active atorvastatin (Lipitor) 20 MG tablet Take 1 tablet (20 mg) by mouth Once per day. 90 tablet 3 06/08/20 24 Active meloxicam (Mobic) 7.5 MG tabletIndicatio ns:Other chronic pain TAKE 1 TABLET BY MOUTH EVERY DAY 90 tablet 3 07/09/19 25 Active verapamil ER (Verelan) 360 MG 24 hr capsule Take 1 capsule (360 mg) by mouth at bedtime. Do not crush or chew. 90 capsule 3 08/28/19 25 026 Active cetirizine (ZyrTEC) 10 MG tablet TAKE 1 TABLET BY MOUTH EVERY MORNING 90 tablet 3 10/10/19 25 Active Rhopressa 0.02 % solution PLACE 1 DROP IN THE RIGHT EYE EVERY DAY AT BEDTIME 10/07/19 25 Active carbamide peroxide (Debrox) 6.5 % otic solution Administer 5-10 drops into affected ear(s) 2 times daily for 4 days. 30 mL 10/24/19 25 025 Active cetirizine (ZyrTEC) 10 MG tablet TAKE 1 TABLET BY MOUTH EVERY MORNING 90 tablet 3 10/04/19 24 025 Discontinued phenylephrine (SUDAFED PE) 5 MG tabletIndicatio ns:Middle ear effusion, right Take 2 tablets (10 mg) by mouth every 6 (six) hours if needed for congestion for up to 5 days. 30 tablet 03/23/20 24 025 Discontinued(T herapy completed) Active Problems Problem Noted Date Diagnosed Date Frequent urination 10/23/2024 Assessment & Plan (10/23/2024 12:33 PM EDT): UA with mild proteinuria PSA pending Fluid restriction 2 hours before bedtime Tinnitus of both ears 03/24/2024 Chronic otitis media of right ear with effusion 10/05/2022 Assessment & Plan (10/05/2022 11:31 AM EDT): Start daily Flonase/Zyrtec Called ENT [facility] [phone] and booked for audiogram and appointment for Jan 29, 2023 at 1pm for audiogram and 130pm for Dr. Melvin Bilateral plantar fasciitis 11/07/2021 Hyperlipidemia 03/03/2021 Assessment & Plan (10/05/2022 11:02 AM EDT): Continue statin daily Hypertensive disorder 03/03/2021 Assessment & Plan (10/23/2024 12:32 PM EDT): At goal <140/90 at home and here [...] Cholesterol: 156 mg/dL On Lipitor 20mg daily Assessment & Plan (03/23/2024 12:43 PM EDT): At goal <140/90 at home Continue Verapamil 360mg daily, Chlorthalidone 25mg daily, Hydralazine 25mg QID, Losartan 100mg Lab Results Component Value Date CREATININE 0.97 07/22/2021 The 10-year ASCVD risk score (Tatiana PERDOMO, et al., 2019) is: 22.6% Values used to calculate the score: Age: 68 years Sex: Male Is Non- : No Diabetic: No Tobacco smoker: No Systolic Blood Pressure: 150 mmHg Is BP treated: Yes HDL Cholesterol: 48 mg/dL Total Cholesterol: 156 mg/dL On Lipitor 20mg daily Assessment & Plan (05/01/2023 9:41 AM EDT): Not at goal <140/90 Increase Verapamil to 360mg daily Lab Results Component Value Date CREATININE 0.97 07/22/2021 Assessment & Plan (10/05/2022 10:59 AM EDT): Not at goal <140/90 Increase Hydralazine 25mg to 4 times daily Gastroesophageal reflux disease 03/03/2021 Glaucoma 03/03/2021 Assessment & Plan (05/01/2023 9:42 AM EDT): Pt's vision worsening, he needs to be seen for further glaucoma management Re-enforced importance of getting to appointments Referral to ophthalmology sent urgent priority Continue drops for now (Latanoprost, Brimonidine, Cosopt) Assessment & Plan (10/05/2022 11:03 AM EDT): Pt no-showed to appointment at [facility] Will have to figure out another practice to book him with Continue drops for now Allergic rhinitis 09/12/2016 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 Overview (10/23/2024): traumatic Osteoarthritis 03/28/2016 Encounters Date Type Department Care Team Description 10/23/2024 11:15 AM EDT Office Visit [address] [address] Stephenie Rodríguez MD Frequent urination (Primary Dx); Dietary counseling; Exercise counseling; Overweight; Screening for colon cancer; Hearing loss of right ear, unspecified hearing loss type; Primary hypertension; Bilateral calcaneal spurs; Bilateral plantar fasciitis 10/23/2024 Travel 10/21/[address] [address] Stephenie Rodríguez MD Chart Prep 10/14/2024 Patient Outreach [address] [address] Stephenie Rodríguez MD Pre-visit Planning ((Unable to reach for PVP screening and or LVM)) 10/14/2024 Patient Outreach [address] [address] Stephenie Rodríguez MD Pre-visit Planning ((Unable to reach for PVP screening and or LVM)) 10/08/2024 Telephone [facility] [address] [facility] [place] [address] Stephenie Rodríguez MD Med Refill 10/08/2024 Refill [facility] [address] [facility] [place] [address] Stephenie Rodríguez MD 08/27/2024 Refill [facility] [address] [place] [address] Stephenie Rodríguez MD 08/27/2024 Refill [facility] [address] [place] [address] Stephenie Rodríguez MD 08/04/2024 Telephone [facility] [address] [place] [address] Tawana Vogel MA recall from Last 3 Months Immunizations Name Administration Dates Next Due Influenza High-dose Quadrivalent Preservative Fr ee 04/29/2023 Influenza, High Dose Seasonal, Preservative Free 05/27/2024 Influenza, IIV3, injectable 03/28/2016 Influenza, trivalent, adjuvanted 03/28/2016 Pneumococcal Conjugate PCV 20 07/12/2023 Tdap 09/12/2016 Zoster, Recombinant 07/12/2023,04/19/2023 Zoster, live 10/14/2016 Social History Tobacco Use Types Packs/Day Years [...] Orientation Straight 04/30/2022 10 :31 AM EDT Last Filed Vital Signs Vital Sign Reading [...] Mass Index 26.19 10/23/2024 11:16 AM EDT Plan of Treatment Health Maintenance Due Date Last Done Comments CT Colonography 1955 Colonoscopy 1955 Colorectal Cancer Screening 1955 FIT DNA/Cologuard 1955 FIT 1955 FOBT 1955 Sigmoidoscopy 1955 COVID-19 Vaccine ( season) 2024 11/10/2021, 05/24/2021, 10/08/2020 SDOH Screening 03/13/2025 03/13/2024 Alcohol/Substance Use Screening 10/23/2025 10/23/2024 Depression Screening 10/23/2025 10/23/2024, 10/24/19 Tobacco Screening 10/23/2025 10/23/2024 DTaP/Tdap/Td Vaccines (2 - Td or Tdap) 09/12/2026 09/12/2016 Lipid Panel 04/13/2027 04/13/2022, 03/03/2021 RSV Patients and Patients Aged 60 years or older (1 - 1-dose 75+ series) 2029 Hepatitis C Screening Completed 03/03/2021 Pneumococcal Vaccine: 50+ Years Completed 07/12/2023 Zoster Vaccines Completed 07/12/2023, 04/01, 10/14/2016 Influenza Vaccine Completed 05/27/2024, , 03/28/2016, Additional history exists HIB Vaccines Aged Out No longer eligi [...] patient's age to complete this topic Meningococcal Vaccine Aged Out No michaela mahsa eligible based on patient's age to complete this topic RSV under 20 months Aged Out No longe r eligible based on patient's age to complete this topic Rotavirus Vaccines Aged Out No longer eligible based on patient's age to complete this topic Procedures Procedure Name Priority Date/Time Associated Diagnosis Comments POCT URINALYSIS DIPSTICK Routine 10/23/2024 11:44 AM EDT Frequent urination LIPID PANEL, STANDARD Routine 04/13/2022 10:34 AM EDT ZZZ HISTORICAL HEPATITIS C AB W/REFL TO HCV RNA, QN, PCR Routine 03/03/2021 9:56 AM EDT from Last 3 Months or Most Recently Relevant to Health Maintenance Results * POCT Urinalysis (10/23/2024 11:44 AM [...] OF CARE TEST ENTER/EDIT ORDERABLES Final Result * LIPID PANEL, STANDARD (04/13/2022 10:34 AM EDT) Chol/HDLC Ratio 3.3 <5.0 (calc) CONVERTED LEGACY LABS Cholesterol, Total 156 <200 mg/dL CONVERTED LEGACY LABS HDL Cholesterol 48 > OR = 40 mg/dL CONVERTED LEGACY LABS LDL Cholesterol 87 mg/dL (calc) CONVERTED LEGACY LABS Comment: Reference range: <100 ?? Desirable range <100 mg/dL for primary prevention; ?? <70 mg/dL for patients with CHD or diabetic patients ?? with > or = 2 CHD risk factors. ?? LDL-C is now calculated using the Dillan-Rizvi ?? calculation, which is a validated novel method providing ?? better accuracy than the Friedewald equation in the ?? estimation of LDL-C. ?? Dillan LUO et al. MAGGIE. 2013;310(19): 3925-9657 ?? (http://education.[employer]/faq/GJO776) Non-HDL Cholesterol 108 <130 mg/dL (calc) CONVERTED LEGACY LABS Comment: For patients with diabetes plus 1 major ASCVD risk ?? factor, treating to a non-HDL-C goal of <100 mg/dL ?? (LDL-C of <70 mg/dL) is considered a therapeutic ?? option. Triglycerides 111 <150 mg/dL CONVE RTED LEGACY LABS 04/13/2022 10:3 4 AM EDT Stephenie Rodríguez MD LAB BLOOD ORDERABLES Final Res ult CONVERTED LEGACY LABS * HEPATITIS C AB W/REFL TO HCV RNA, QN, PCR (03/03/2021 9:56 AM EDT) HEPATITIS C ANTIBODY NON-REACT ELVIRA NON-REACT ELVIRA [facility] INDEX 0.01 <1.00 [facility] Comment: ?? HCV antibody was non-reactive. There is no laboratory ?? evidence of HCV infection. ?? In most cases, no further action is required. However, if recent HCV exposure is suspected, a test for HCV RNA (test code 84070) is suggested. ?? For additional information please refer to http://[employer].Brazzle[employer]/faq/GOW07i8 (This link is being provided for informational/ educational purposes only.) ?? 03/03/2021 9:56 AM EDT Stephenie Rodríguez MD HISTORICAL/NON ORDERABLE LABS Final Result Performing Organization Address City/State/RUST Co de Phone Number [facility] [address] from Last 3 Months or Most Recently Relevant to Health Maintenance Insurance [facility] MEDICARE ADVANTAGE HMO Care Teams Tile Grinder Relationship Specialty Start Date End Date Stephenie Rodríguez MD [address] [place] [address] PCP - General Family Medicine 03/03/21
--- OUTSIDE RECORDS SUMMARY | 2024-10-23 12:43 | XMS_ITS | Encounter Summary ---
Author Organization [employer] Address [address] [facility] 7t [place] [address] Care Team Providers Care Server Administrator Name Role Phone Stephenie Rodríguez MD Primary Care Provider [phone] Reason for Visit * Reason Comments Med Refill Encounter Details Date Type Department Care Team (Late st Contact Info) Description 03/09/2024 Refill [facility] [address] [place], [place] [phone] Stephenie Rodríguez MD [address] [place], [place] [phone] Essential hypertension Social History Tobacco Use Types Packs/Day Years [...] as of this encounter Visit Diagnoses Diagnosis Essential hypertension Unspecified essential hypertension documented in this encounter Care Teams Server Administrator Relationship Specialty Start Date End Date Stephenie Rodríguez MD [address] [place] [id number] PCP - General Family Medicine 03/03/21 documented as of this encounter
== END 2024-10-23 11:52 | disposition home or self-care (01) ==
LOC: HO.HHCL 11:51
PROVIDERS: Visit Provider General Practice
DX: R35.0 Frequency of micturition (principal); Z12.5 Encounter for screening for malignant neoplasm of prostate
CPT/HCPCS: 36415; 84153

== ENCOUNTER 2025-06-23 11:12 | Outpatient (REF) | payer MEDICARE, SELFPAY ==
--- OUTSIDE RECORDS SUMMARY | 2025-06-18 13:00 | XMS_ITS | Encounter Summary ---
Author Organization [facility] Address [address] [place] [id number] Care Team Providers Care Inside Tester Name Role Phone Phil Gerardo DO Primary Care Provider + Reason for Visit * Consultation (Routine) - Authorized Specialty Diagnoses / Procedures Referred By Bon centeno Referred To Contact Physical Therapy Diagnoses Plantar fascial fibromatosis Equinus contracture of ankle Adolfo Fraser, DPM [address] [address] Phone: tel: fax: Referral ID Status Reason Start Date Expiration Date Visits Requested Visits Authorized [id number] Authorized Specialty Services Required 06/04/2025 06/04/2026 12 12 Encounter Details Date Type Department Care Team (Latest Contact Info) Description 06/18/2025 1:00 PM EST Evaluation Outpatient Rehabilitation [address] [address] Panchito Jackson, PT [address] [place] [address] Plantar fascial fibromatosis; Equinus contracture of ankle Social History Tobacco Use Types Packs/Day Years Used Date Smoking Tobacco: Never Smokeless Tobacco: Never Alcohol Use Standard Drinks/Week Comments No 0 (1 standard drink = 0.6 oz pur e alcohol) Sex and Gender Information Value Date Recorded Sex Assigned at Not on file Legal Sex Male 5:07 PM EST Gender Identity Not on file Sexual Orientation Not on file documented as of this encounter Progress Notes * Panchito Jackson, PT - 06/18/2025 1:00 PM EST Images from the original note were not included. [facility] - Outpatient PHYSICAL THERAPY EVALUATION Date: 06/18/2025 Visit Number: 1 Patient Name: Chris Prather : 1955 Age: 69 y.o. Gender: male Diagnosis: ICD-10-CM ICD-9-CM 1. Plantar fascial fibromatosis M72.2 728.71 Ambulatory referral to Physical Therapy and Athletic Training 2. Equinus contracture of ankle M24.573 718.47 Ambulatory referral to Physical Therapy and AthleticTraining Date of Onset/Surgery: 06/04/2025 Hx of current condition: Pt comes in with C/O B heel/plantar foot pain. Pt reports Sx have been present for years. Pt saw Dr. Fraser who did a cortisone injection B. Reports cortisone improves Sx, but only temporary. Xray shows intracalcaneal spurring B. Pt is a retired individual. Pt sees Dr. Fraser Referring Provider: Adolfo Fraser DPM Insurance: Payor: [employer] MEDICARE / Plan: AARP MEDICARE COMPLETE / Product Type: *No Product type* / Patient identified by: Panchito Jackson PT Language: Video Dental Detail Representative service provided for pt. preferred language of German. Dental Detail Representative # [id number] Chart Reviewed: Yes Medications: Medications Ordered Prior to Encounter[1] Advised Patient to contact MD with any questions regarding medications and importance of managing medication information. has a past medical history of Allergic rhinitis (09/12/2016), Bilateral calcaneal spurs (03/28/2016),Gastroesophageal reflux disease (12/16/2019), Glaucoma (03/28/2016), Hearing loss in right ear (03/28/2016), Hearing loss in right ear (03/28/2016), Hypertension (03/28/2016), and Osteoarthritis (03/28/2016). has a past surgical history that includes Colonoscopy (07/05/2016). is allergic to aspirin. Precautions: [place] SUBJECTIVE History of Present Illness/Subjective Report: Hx of current condition: Pt comes in with C/O B heel/plantar foot pain. Pt reports Sx have been present for years. Pt saw Dr. Fraser who did a cortisone injection B. Reports cortisone improves Sx, but only temporary. Xray shows intracalcaneal spurring B. Pt is a retired individual. Pt sees Dr. Fraser Pain: Pain location(s): 04/09 Home Environment: Pt lives with niece in a house with stairs. Prior Level of Function: no limitations Current Functional Limitations: Reported by Patient Pt was unable to quantify Sx despite multiple attempts. Reports having to rest after walking for some time, which is something he has to do often. Is the patient at Risk for Falls: No OBJECTIVE General Observations/Posture/Comments: pes planus B, more pronounced on L *= Pain Palpation: TTP B plantar fascia, most proximal insertion. B LE MMT Right Left Ankle PF (S 1)---SLHR reps 10 10 Ankle DF (L 4-L 5) 5/5 5/5 Knee extension (L 3) 5/5 5/5 Knee flexion (S 2) 5/5 5/5 Hip ER 4+/5 4+/5 Hip IR 4/5 4/5 Hip flexion (L 1-2) 5/5 5/5 Hip abduction 4+/5 4+/5 Hip adduction 4+/5 4+/5 Hip extension 4/5 4/5 Ability to standard bridge 100% Ability to unilateral bridge 100% 100% LE ROM----> in degrees WFL unless otherwise noted AROM Right AROM Left PROM Right PROM Left Hip flexion (0-120) Hip extension (0-30) Hip abduction (0-45) Hip adduction (0-30) Hip IR (0-45) Hip ER (0-45) Knee flexion (0-150) Knee extension (0) Ankle DF (0-20) knee ext 2 -2 2 -2 Ankle DF with knee flex 7 0 7 0 Ankle PF (0-40) Ankle Inversion (0-35) 30 30 Ankle Eversion (0-15) 10 10 Great Toe MTP Flex (0-45) Great Toe MTP Ext (0-70) Tight HS, quads, hip flexors and plantarflexors SLS 12 sec R and unable without support on L Special Tests: Positive: calcaneal squeeze test B Negative: tinel's, SLR, URIEL, SARAHIR Treatment: Standing gastroc stretch 3 x 30 sec each Cuing required for form, count and hold ASSESSMENT: Rehabilitation Potential: Rehab Potential: Condition Has Potential to Improve Chris Prather is a 69 y.o. male presenting for outpatient physical therapy evaluation with complaints of B heel/foot pain . Patients progress may be limited by unable to read or write . SkilledPhysical therapy is medically necessary to reach PT goals, improve ROM, strength, function and painlevels Learning Needs: Were Patient Learning needs assessed: Yes Learning Preferences: Explanation, Demonstration, and Printed Materials Barriers to Learning: No Barriers to Learning Patient Education: [x] Discussed, with patient and/or caregiver, the recommended plan of care/goals, the importance oftherapy and appointment compliance in order to achieve goals in a timely manner. GOALS Goals Addressed This Visit's Progress feel better (pt-stated) PT LTG x 15 visits from [facility] on 06/18/25 [x] = goal MET [] = goal NOT MET [] Pt will report improved walking capacity by >50% PT STG x 8 visits from [facility] on 06/18/25 [x] = goal MET [] = goal NOT MET [] Pt will improve SLS on bilaterally to 15 seconds, [] Pt will improve ankle DF ROM to 10 deg,L and 15 deg R with knee flexed [] Pt will improve inversion ROM to 35 deg, [] Pt will improve eversion ROM to 20 deg PLAN POC Development/Review: Initial Evaluation; Participants: Patient Skilled Therapy Plan Required to improve ROM, strength, function, pain levels and achiever PT/pt goals. Planned Therapy Interventions: Biofeedback, E-Stim -- Unattended, Hot Pack, Kinesiotaping, Manual Therapy, Mechanical Traction, Neuromuscular Re-education, Soft Tissue Mobility, TENS, Therapeutic Activity, Therapeutic Exercise, and Ultrasound Skilled PT recommended at a freq of 2 a week for 15 visits, with a re-eval after 4 wks. Recommended Consults: none Equipment Recommended: none; Equipment Provided: none BILLING TOTAL TREATMENT TIME: 60 Minutes Evaluation Low Complexity Justification ::: A history with no personal factors and/or co-morbidities that impact the plan of care Documentation completed by Panchito Jackson, PT OUTPATIENT REHABILITATION [address] [address] Dept: [phone] Dept PATIENT NAME: Chris Prather : 1955 Certification: This is to certify that the above named patient, who is under my care, requires skilled Therapy services as described in the above treatment plan. I further certify that the services outlined in this plan are skilled and medically necessary. I have reviewed this plan for rehabilitation services, and I recommend that these services continue to meet the above stated goals and plan. SIGNATURE: DATE Adolfo Fraser DPM Referring provider [1] Current Outpatient Medications on File Prior to Visit Medication Sig Dispense Refill atorvastatin (LIPITOR) 10 mg tablet Take 1 tablet by mouth daily. brimonidine (ALPHAGAN) 0.2 % ophthalmic solution 1 drop in each eye bid chlorthalidone (HYGROTON) 25 mg tablet Take 1 tablet by mouth daily. dorzolamide HCl/timolol maleat (COSOPT OPHT) apply to the eye. 1 drop in each eye bid LATANOPROST OPHT apply to the eye. 1 drop in each eye at night time meloxicam (MOBIC) 7.5 mg tablet Take 1 tablet by mouth daily. omeprazole (PriLOSEC) [address] capsule TOME 1 CAPSULA POR VIA ORAL TODOS [place] potassium chloride 20 mEq tablet extended release Take 1 tablet by mouth daily. simethicone (MYLICON) 80 mg chewable tablet Take 1 Tab by mouth at bedtime as needed for Flatulence. verapamil SR (CALAN-SR) 240 mg CR tablet Take 1 tablet by mouth at bedtime. No current facility-administered medications on file prior to visit. documented in this encounter Plan of Treatment Upcoming Encounters Date Type Department Care Team (Late st Contact Info) Description 06/25/2025 10:30 AM EST Treatment Outpatient [facility] - [address] [phone] King Cohen, FLIGHT LINE SERVICE ATTENDANT 06/28/2025 11:00 AM EST Treatment Outpatient [address] [phone] King Cohen, FLIGHT LINE SERVICE ATTENDANT 07/02/2025 11:00 AM EST Treatment Outpatient [facility] - [address] [phone] King Cohen, FLIGHT LINE SERVICE ATTENDANT 07/05/2025 11:00 AM EST Treatment Outpatient [address] [phone] King Cohen, FLIGHT LINE SERVICE ATTENDANT 07/09/2025 11:00 AM EST Treatment Outpatient [address] [phone] King Cohen, FLIGHT LINE SERVICE ATTENDANT 07/12/2025 11:00 AM EST Treatment Outpatient [address] [phone] King Cohen, FLIGHT LINE SERVICE ATTENDANT 07/16/2025 11:00 AM EST Treatment Outpatient [address] [phone] Panchito Jackson, PT [address] [place] [address] 07/19/2025 3:00 PM EST Office Visit Orthopedic Surgery [facility] [address] [address] Adolfo Fraser DPM [address] [address] documented as of this encounter Goals Goal Patient Goal Type Associated Problems Recent Progress Patient-Stated? Author feel better General Yes Panchito Jackson, PT PT STG x 8 visits from [facility] on 06/18/25 General No Panchito Jackson M, PT Note: [x] = goal MET [] = goal NOT MET [] Pt will improve SLS on bilaterally to 15 seconds, [] Pt will improve ankle DF ROM to 10 deg,L and 15 deg R with knee flexed [] Pt will improve inversion ROM to 35 deg, [] Pt will improve eversion ROM to 20 deg PT LTG x 15 visits from [facility] on 06/18/25 General No Panchito Jackson M, PT Note: [x] = goal MET [] = goal NOT MET [] Pt will report improved walking capacity by >50% documented as of this encounter Visit Diagnoses Diagnosis Plantar fascial fibromatosis Equinus contracture of ankle documented in this encounter Orders Outpatient Referral Count Last Ordered Date Fir st Ordered Date AMB REFERRAL TO [facility]YSICAL [facility] 1 06/18/2025 documented in this encounter Care Teams Inside Tester Relationship Specialty Start Date End Date Phil Gerardo DO [facility] [address] [place] [address] PCP - General Internal Medicine 12/23/20 documented as of this encounter
--- OUTSIDE RECORDS SUMMARY | 2025-06-21 09:30 | XMS_ITS | Encounter Summary ---
Author Organization [facility] Address [address] [place] [address] Care Team Providers Care Medical Office Manager Name Role Phone Phil Gerardo DO Primary Care Provider + Reason for Visit * Consultation (Routine) - Authorized Specialty Diagnoses / Procedures Referred By Bon centeno Referred To Contact Physical Therapy Diagnoses Plantar fascial fibromatosis Equinus contracture of ankle Adolfo Fraser, DPM [address] [address] Phone: tel: fax: Referral ID Status Reason Start Date Expiration Date Visits Requested Visits Authorized [id number] Authorized Specialty Services Required 06/04/2025 06/04/2026 12 12 Encounter Details Date Type Department Care Team (Latest Contact Info) Description 06/21/2025 9:30 AM EST Treatment Outpatient Rehabilitation [address] [phone] King Cohen PTA Plantar fascial fibromatosis (Primary Dx); Equinus contracture of ankle Social History Tobacco [...] as of this encounter Progress Notes * King Cohen PTA - 06/21/2025 9:30 AM EST [facility] - Outpatient PHYSICAL THERAPY DAILY TREATMENT NOTE - OP Date: 06/21/2025 Visit Number: 2 Patient Name: Chris Prather : 1955 Age: 69 y.o. Gender: male Diagnosis: ICD-10-CM ICD-9-CM 1. Plantar fascial fibromatosis M72.2 728.71 2. Equinus contracture of ankle M24.573 718.47 Date of Onset/Surgery: 06/04/2025 Referring Provider: Adolfo Fraser DPM Insurance: Payor: [employer] MEDICARE / Plan: [facility] MEDICARE COMPLETE / Product Type: *No Product type* / Patient Identified by: King Cohen PTA Language: Brazilian. #[id number] [place] Medications: Medications Ordered Prior to Encounter[1] Allergies: is allergic to aspirin. Precautions: MOHEGAN Fall risk: No SUBJECTIVE Subjective Report: pt reports thru interpretor pain in right foot that comes and goes Chart Reviewed: Yes Pain No number given OBJECTIVE Nu step x 5 min Gastroc stretch on step x 4 with 20 sec hold Wobble board DF/PF/EV/INV x 20 each Heel/toe raises x 20 Self roll (R) plantar fascia 5 minwith lacrosse ball Passive right ankle and right Plantar fascia streches TREATMENT INTERVENTION: ASSESSMENT/Response to Treatment Good progress as able Patient Education: Education provided: Yes Education Provided To: Patient utilizing Explanation mode(s) of education Response to Education: Verbal Understanding PLAN POC Development/Review: No Change in the Plan of Care; Participants: Patient Total Treatment Time: 25 Modalities: Therapeutic procedures: Documentation completed by King Cohen PTA [1] Current Outpatient Medications on File Prior [...] 10:30 AM EST Treatment Outpatient [facility] - [address] [phone] King Cohen, STEEL RULE INSPECTOR 06/28/2025 11:00 AM EST Treatment Outpatient [facility] - [address] [phone] King Cohen, STEEL RULE INSPECTOR 07/02/2025 11:00 AM EST Treatment Outpatient Rehabilitation - [address] [phone] King Cohen, STEEL RULE INSPECTOR 07/05/2025 11:00 AM EST Treatment Outpatient [facility] - [address] [phone] King Cohen, STEEL RULE INSPECTOR 07/09/2025 11:00 AM EST Treatment Outpatient Rehabilitation - [address] [phone] King Cohen, STEEL RULE INSPECTOR 07/12/2025 11:00 AM EST Treatment Outpatient Rehabilitation [address] [phone] King Cohen, STEEL RULE INSPECTOR 07/16/2025 11:00 AM EST Treatment Outpatient Rehabilitation [address] [phone] Panchito Jackson, PT 175 [place] [address] 07/19/2025 3:00 PM EST Office Visit Orthopedic Surgery - [place] [address] [phone] Adolfo Fraser, DPM [address] [phone] documented as of this encounter Goals Goal Patient Goal Type Associated Problems Recent Progress Patient-Stated? Author feel better General Yes Pnachito Jackson, PT PT STG x 8 visits from [facility] on 06/18/25 General No Panchito Jackson, PT Note: [x] = goal MET [] = goal NOT MET [] Pt will improve SLS on bilaterally to 15 seconds, [] Pt will improve ankle DF ROM to 10 deg,L and 15 deg R with knee flexed [] Pt will improve inversion ROM to 35 deg, [] Pt will improve eversion ROM to 20 deg PT LTG x 15 visits from [facility] on 06/18/25 General No Panchito Jackson, PT Note: [x] = goal MET [] = goal NOT MET [] Pt will report improved walking capacity by >50% documented as of this encounter Visit Diagnoses Diagnosis Plantar fascial fibromatosis- Primary Equinus contracture of ankle documented in this encounter Care Teams Medical Office Manager Relationship Specialty Start Date End Date Phil Gerardo DO [facility]. [address] [place] [address] PCP - General Internal Medicine 12/23/20 documented as of this encounter
--- OUTSIDE RECORDS SUMMARY | 2025-06-23 10:30 | XMS_ITS | Encounter Summary ---
Author Organization [employer] Address [address] [facility] 7t [place] [address] Care Team Providers Care University Extension Specialist Name Role Phone Stephenie Rodríguez MD Primary Care Provider [phone] Reason for Visit * Reason Comments Follow-up DM Encounter Details Date Type Department Care Team (Late st Contact Info) Description 06/23/2025 10:30 AM EST Office Visit [facility] [address] [place], [place] [phone] Stephenie Rodríguez MD [address] [place], [place] [phone] Primary hypertension (Primary Dx); Encounter for immunization Social History Tobacco Use Types Packs/Day Years [...] as of this encounter Plan of Treatment Scheduled Orders Name Type Priority Associated Diagnoses Orde r Schedule Hemoglobin A1c Lab Routine Primary hypertension Expected: 06/23/2025 (Approximate), Expires: 06/23/2026 Comprehensive Metabolic Panel Lab Routine Primary hypertension Expected: 06/23/2025 (Approximate), Expires: 06/23/2026 documented as of this encounter Visit Diagnoses Diagnosis Primary hypertension- Primary Unspecified essential hypertension Encounter for immunization documented in this encounter Additional Health Concerns Assessment Noted Time PHQ-9 Depression Total Score: 1 10/24/19 25 11:18 AM EDT documented as of this encounter Care Teams University Extension Specialist Relationship Specialty Start Date End Date Stephenie Rodríguez MD [address] [place] [address] PCP - General Family Medicine 03/03/21 documented as of this encounter
--- OUTSIDE RECORDS SUMMARY | 2025-06-23 11:17 | XMS_ITS | Encounter Summary ---
Author Organization [facility] [employer] [facility] Address [address] [facility] 7t [place] [address] Care Team Providers Care Saw Grinder Name Role Phone Stephenie Rodríguez MD Primary Care Provider [phone] Encounter Details Date Type Department Care Team [...] on filedocumented in this encounter Care Teams Saw Grinder Relationship Specialty Start Date End Date Stephenie Rodríguez MD 230 [place] [address] PCP - General Family Medicine 03/03/21 documented as of this encounter
--- OUTSIDE RECORDS SUMMARY | 2025-06-23 11:17 | XMS_ITS | Clinical Summary ---
Author Organization 175 [facility] Address 175 [place] [address] Phone Care Team Providers Care Hiv Prevention Specialist Name Role Phone Phil Gerardo DO Primary Care Provider + Allergies Active Allergy [...] 0.5 mLIndications:Planta r fascial fibromatosis .5 mL Once PRN Procedure 06/04/2025 06/04/2025 Ended lidocaine (PF) (XYLOCAINE-MPF) 1 % injection 0.5 mLIndications:Planta r fascial fibromatosis .5 mL Once PRN Procedure 06/04/2025 06/04/2025 Ended triamcinolone acetonide (KENALOG-40) 40 mg/mL injection 20 mgIndications:Planta r fascial fibromatosis 20 mg Once PRN Procedure 06/04/2025 06/04/2025 Ended triamcinolone acetonide (KENALOG-40) 40 mg/mL injection 20 mgIndications:Planta r fascial fibromatosis 20 mg Once PRN Procedure 06/04/2025 06/04/2025 Ended Active Problems Problem Noted Date Diagnosed Date Gastroesophageal reflux disease 12/16/2019 Allergic rhinitis 09/12/2016 Hyperlipidemia 04/02/2016 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 Glaucoma 03/28/2016 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 Hypertension 03/28/2016 Osteoarthritis 03/28/2016 Encounters Date Type Department Care Team Description 06/21/2025 9:30 AM EST Treatment Outpatient Rehabilitation [address] [phone] King Cohen, AUTOMOTIVE MANAGER Plantar fascial fibromatosis (Primary Dx); Equinus contracture of ankle 06/18/2025 1:00 PM EST Evaluation Outpatient Rehabilitation - [address] [phone] Panchito aJckson, PT Plantar fascial fibromatosis; Equinus contracture of ankle 06/04/2025 9:00 AM EST Office Visit Orthopedic [address] [phone] Adolfo Fraser, DPM Plantar fascial fibromatosis (Primary Dx); Equinus contracture of ankle 04/28/2025 3:15 PM EDT Office Visit Orthopedic [facility] [address] [phone] Adolfo Fraser, DPM Plantar fascial fibromatosis (Primary Dx); Equinus contracture of ankle from Last 3 Months Immunizations Immunization Administration Dates Next Due Influenza trivalent, with [...] on file Sexual Orientation Not on file Last Filed Vital Signs Vital Sign Reading Time Taken Comments Blood Pressure - - Pulse - - Temperature - - Respiratory Rate - - Oxygen Saturation - - Inhaled Oxygen Concentration - - Weight 72.6 kg (160 lb) 01/21/2025 2:02 PM EDT Height 165.1 cm (5' 5 ) 01/21/2025 2:02 PM EDT Body Mass Index 26.63 01/21/2025 2:02 PM EDT Plan of Treatment Upcoming Encounters Date Type Department Care Team (Late st Contact Info) Description 06/25/2025 10:30 AM EST Treatment Outpatient Rehabilitation - [address] [phone] King Cohen, AUTOMOTIVE MANAGER 06/28/2025 11:00 AM EST Treatment Outpatient [facility] - [address] [phone] King Cohen, AUTOMOTIVE MANAGER 07/02/2025 11:00 AM EST Treatment Outpatient Rehabilitation - [address] [phone] King Cohen, AUTOMOTIVE MANAGER 07/05/2025 11:00 AM EST Treatment Outpatient [address] [phone] King Cohen, AUTOMOTIVE MANAGER 07/09/2025 11:00 AM EST Treatment Outpatient [facility] - [address] [phone] King Cohen, AUTOMOTIVE MANAGER 07/12/2025 11:00 AM EST Treatment Outpatient [facility] - [address] [phone] King Cohen, AUTOMOTIVE MANAGER 07/16/2025 11:00 AM EST Treatment Outpatient [address] [phone] Panchito Jackson, PT 175 [place] [address] 07/19/2025 3:00 PM EST Office Visit Orthopedic Surgery [facility] [address] [phone] Adolfo Fraser, DPM [address] [phone] Health Maintenance Due Date Last Done Comments Falls Risk Assessment 06/09/2022 Medicare Annual Wellness Visit 06/09/2022 Social Influencers of Health Screening 06/09/2022 Hypertension/CHF/CAD Annual BMP Blood Test 06/15/2022 07/27/2020 Depression Screening 07/01/2024 COVID-19 Vaccine (4 - 2024-2 6 season) 2025 11/10/2021, 05/24/2021, 10/08/2020 Influenza Vaccine (#1) 2025 , 04/29/2023, 03/28/2016 Colorectal Cancer Screening: Colonoscopy 07/05/2026 07/05/2016 DTaP,Tdap,and Td Vaccines (2 - Td or Tdap) 09/12/2026 09/12/2016 Cholesterol Screening (Lipid Panel) 04/13/2027 04/13/2022, 06/02/2020 RSV Immunization Adult Patients (1 - 1-dose 75+ series) 2029 Hepatitis C Screening Completed 10/15/2016 Pneumococcal Vaccine: 50+ Years Completed 07/12/2023 Zoster Vaccines Completed 07/12/2023, 04/19/2023, 10/14/2016 HIB Vaccines Aged Out No longer eligi [...] on patient's age to complete this topic Goals Goal Patient Goal Type Associated Problems Recent Progress Patient-Stated? Author feel better General Yes Panchito Jackson, PT PT STG x 8 visits from [facility] on 06/18/25 General No Panchito Jackson, PT [...] deg PT LTG x 15 visits from [facility] on 06/18/25 General Panchito Schaeffer, PT Note: [x] = goal MET [] = goal NOT MET [] Pt will report improved walking capacity by >50% Procedures Procedure Name Priority Date/Time Associated Diagnosis Comments INJECTION TENDON OR LIGAMENT Routine 06/04/2025 9:00 AM EST Plantar fascial fibromatosis INJECTION TENDON OR LIGAMENT Routine 06/04/2025 9:00 AM EST Plantar fascial fibromatosis ANNUAL BMP BLOOD TEST Routine 07/27/2020 LIPID PANEL Routine 06/02/2020 HEPATITIS C SCREENING Routine 10/15/2016 COLONOSCOPY Routine 07/05/2016 from Last 3 Months or Most Recently Relevant to Health Maintenance Results * Injection tendon or ligament (06/04/2025 9:00 AM EST) Adolfo Godoy DPM - 06/04/2025 9:00 AM EST Adolfo Fraser DPM 06/04/2025 1:30 PM Injection tendon or ligament Indications: pain Details: 25 G needle Medications: 0.5 mL lidocaine (PF) 1 %; 20 mg triamcinolone acetonide 40 mg/mL Informed Consent: Site: Foot ligament tendon us Adolfo Fraser DPM IN CLINIC/BEDSIDE ORDERAB LES Final Result * Injection tendon or ligament (06/04/2025 9:00 AM EST) Adolfo Godoy DPM - 06/04/2025 9:00 AM EST Adolfo Fraser DPM 06/04/2025 1:30 PM Injection tendon or ligament Indications: pain Details: 25 G needle Medications: 0.5 mL lidocaine (PF) 1 %; 20 mg triamcinolone acetonide 40 mg/mL Informed Consent: Site: Foot ligament tendon Result [facility] Adolfo Fraser DPM IN CLINIC/BEDSIDE ORDERAB LES Final Result * Annual BMP Blood Test (07/27/2020) Pathologist [facility] Annual BMP Blood Test abstracted Result [facility] Provider HEALTH MAINTENANCE Final Result * (ABNORMAL) Lipid panel (06/02/2020) [facility] LDL/HDL Ratio 5(A) 0 - 4 Triglycerides 134 0 - 150 mg/dL Cholesterol 240(A) 0 - 200 mg/dL HDL 50 >=40 mg/dL LDL Cholesterol 164(A) 0 - 100 mg/dL Blood Venous blood specimen / Unknown Result [facility] Historical Provider LAB BLOOD ORDERABLES Doreen l Result * Hepatitis C Screening (10/15/2016) Pathologist [facility] Hepatitis C Screening abstracted [facility] Provider HEALTH MAINTENANCE Final Result * Colonoscopy (07/05/2016) [facility] Colonoscopy negative, abstracted Anatomical Region Laterality Modality Other Historical Provider HEALTH MAINTENANCE Final Result from Last 3 Months or Most Recently Relevant to Health Maintenance Insurance [place]ICA[place] - [place] [employer] MEDICARE Care Teams Hiv Prevention Specialist Relationship Specialty Start Date End Date Phil Gerardo DO [facility]. [address] [place] [address] PCP - General Internal Medicine 12/23/20
--- OUTSIDE RECORDS SUMMARY | 2025-06-23 11:17 | XMS_ITS | Encounter Summary ---
Author Organization [employer] Address 75 [facility] 7t [place] [address] Care Team Providers Care Gear Tooth Grinding Machine Operator Name Role Phone Stephenie Rodríguez MD Primary Care Provider [phone] Encounter Details Date Type Department Care Team (Late st Contact Info) Description 08/21/2022 Orders Only [facility] 230 [place], [place] [phone] Noemi Felix LPN Social History Tobacco Use [...] on filedocumented in this encounter Care Teams Gear Tooth Grinding Machine Operator Relationship Specialty Start Date End Date Stephenie Rodríguez MD 230 [place] [address] PCP - General Family Medicine 03/03/21 documented as of this encounter
--- OUTSIDE RECORDS SUMMARY | 2025-06-23 11:17 | XMS_ITS | Encounter Summary ---
Author Organization [employer] Address 75 [facility] 7t [place] [address] Care Team Providers Care Time Recorder Name Role Phone Stephenie Rodríguez MD Primary Care Provider [phone] Reason for Visit * Reason Comments Med Refill Encounter Details Date Type Department Care Team (Late st Contact Info) Description 03/09/2024 Refill [facility] 230 [place], [place] [phone] Stephenie Rodríguez MD 230 [place], [place] [phone] Essential hypertension Social History Tobacco Use Types Packs/Day Years Used Date Smoking Tobacco: Never Passive Smoke Exposure: Never Smokeless Tobacco: Never Housing Stability Answer Date Recorded What is your housing situation today? I have artis j carlos 04/16/[address] you li [...] hypertension documented in this encounter Care Teams Time Recorder Relationship Specialty Start Date End Date Stephenie Rodríguez MD [address] [place] [address] PCP - General Family Medicine 03/03/21 documented as of this encounter
--- OUTSIDE RECORDS SUMMARY | 2025-06-23 11:17 | XMS_ITS | Encounter Summary ---
Author Organization [employer] [facility] Address 75 [facility] 7t [place] [address] Care Team Providers Care Sign Maker Name Role Phone Stephenie Rodríguez MD Primary Care Provider [phone] Reason for Visit * Reason Comments Med Refill Encounter Details Date Type Department Care Team (Late st Contact Info) Description 06/04/2022 Refill [facility] [address] [place], [place] [phone] Stephenie Rodríguez MD 230 [place], [place] [phone] Social History Tobacco Use Types Packs/Day Years [...] on filedocumented in this encounter Care Teams Sign Maker Relationship Specialty Start Date End Date Stephenie Rodríguez MD 230 [place], [place] [phone] PCP - General Family Medicine 03/03/21 documented as of this encounter
--- OUTSIDE RECORDS SUMMARY | 2025-06-23 11:17 | XMS_ITS | Encounter Summary ---
Author Organization [employer] Address [address] [facility] 7t [place] [address] Care Team Providers Care Aircraft Cabin Cleaner Name Role Phone Stephenie Rodríguez MD Primary Care Provider [phone] Encounter Details Date Type Department Care Team (Late st Contact Info) Description 07/19/2022 Orders Only [facility] MED & PEDS [address] [place] [address] Bertha Mendosa LPN Social History Tobacco Use [...] on filedocumented in this encounter Care Teams Aircraft Cabin Cleaner Relationship Specialty Start Date End Date Stephenie Rodríguez MD 230 [place] [address] PCP - General Family Medicine 03/03/21 documented as of this encounter
--- OUTSIDE RECORDS SUMMARY | 2025-06-23 11:17 | XMS_ITS | Encounter Summary ---
Author Organization [employer] Address [address] [facility] 7t [place] [address] Care Team Providers Care Product Marketing Analyst Name Role Phone Stephenie Rodríguez MD Primary Care Provider [phone] Reason for Visit * Reason Comments Med Refill Encounter Details Date Type Department Care Team (Late st Contact Info) Description 04/29/2023 Refill [facility] MED[facility] 230 [place], [place] [phone] Stephenie Rodríguez MD 230 [place], [place] [phone] Glaucoma, unspecified glaucoma type, unspecified laterality Social [...] laterality documented in this encounter Care Teams Product Marketing Analyst Relationship Specialty Start Date End Date Stephenie Rodríguez MD 230 [place] [address] PCP - General Family Medicine 03/03/21 documented as of this encounter
--- OUTSIDE RECORDS SUMMARY | 2025-06-23 11:17 | XMS_ITS | Encounter Summary ---
Author Organization [employer] Address [address] [facility] 7t [place] [address] Care Team Providers Care Spring Coiler Name Role Phone Stephenie Rodríguez MD Primary Care Provider [phone] Encounter Details Date Type Department Care Team (Latest Contact Info) Description 06/23/2025 Travel Social History Tobacco Use Types Packs/Day [...] documented as of this encounter Care Teams Spring Coiler Relationship Specialty Start Date End Date Stephenie Rodríguez MD 230 [place] [address] PCP - General Family Medicine 03/03/21 documented as of this encounter
--- OUTSIDE RECORDS SUMMARY | 2025-06-23 11:17 | XMS_ITS | Patient Health Record ---
Author Organization [employer] Address [address] [facility] [address] [place] [address] Care Team Providers Care Demurrage Man Name Role Phone cameron nava Primary Care [...] Insured Coverage Start Date Coverage End Date [facility] [address] [address] [place] [address] [id number] Chris Hastings Self - patient is the [...]
--- OUTSIDE RECORDS SUMMARY | 2025-06-23 11:18 | XMS_ITS | Clinical Summary ---
Author Organization [employer] Address [address] [facility] [address] [place] [address] Care Team Providers Care Lab Scientist Name Role Phone Stephenie Rodríguez MD Primary Care Provider [phone] Allergies Active Allergy Reactions Criticality Noted Date [...] cap. 16 g 11 10/06/19 23 Active latanoprost (Xalatan) 0.005 % ophthalmic solutionIndicati ons:Glaucoma, unspecified glaucoma type, unspecified laterality INSTILL 1 DROP IN EACH EYE EVERY DAY IN THE EVENING 2.5 mL 11 06/08/20 24 Active meloxicam (Mobic) 7.5 MG tabletIndication s:Other chronic pain TAKE 1 TABLET BY MOUTH [...] EVERY DAY AT BEDTIME 10/07/19 25 Active omeprazole (PriLOSEC) [address] capsule TAKE 1 CAPSULE BY MOUTH EVERY DAY BEFORE A MEAL 90 capsule 3 11/26/19 25 Active hydrALAZINE (Apresoline) 25 MG tabletIndication s:Primary hypertension,Ess ential hypertension TAKE 1 TABLET BY MOUTH FOUR TIMES DAILY 360 tablet 3 5 12:21 PM EST 11/26/19 25 Active FT Earwax Removal 6.5 % otic solution PLACE 5 TO 10 DROPS INTO THE AFFECTED EAR(S) TWICE DAILY FOR 4 DAYS 15 mL 1 12/05/19 25 Active brimonidine (AlphaGAN P) 0.15 % ophthalmic solutionIndicati ons:Glaucoma, unspecified glaucoma type, unspecified laterality INSTILL 1 DROP IN EACH EYE TWICE DAILY 5 mL 5 5 12:21 PM EST 01/30/20 25 Active dicyclomine (Bentyl) 10 MG capsule TAKE 1 CAPSULE BY MOUTH TWICE DAILY FOR GAS OR FOR CRAMPS 60 capsule 11 02/25/20 25 Active losartan (Cozaar) 100 MG tabletIndication s:Essential hypertension TAKE 1 TABLET BY MOUTH EVERY MORNING 90 tablet 3 5 12:21 PM EST 03/02/20 25 Active dorzolamide-kris lol (Cosopt) 2-0.5 % ophthalmic solution INSTILL 1 DROP IN EACH EYE TWICE DAILY 10 mL 1 04/21/20 25 Active chlorthalidone (Hygroton) 25 MG tablet TAKE 1 TABLET BY MOUTH EVERY DAY 90 tablet 3 04/23/20 25 Active atorvastatin (Lipitor) 20 MG tablet TAKE 1 TABLET BY MOUTH EVERY DAY 90 tablet 3 5 12:21 PM EST 05/31/20 25 Active atorvastatin (Lipitor) 20 MG tablet Take 1 tablet (20 mg) by mouth Once per day. 90 tablet 3 06/08/20 24 025 Discontinued Active Problems Problem Noted Date Diagnosed Date Frequent urination 10/23/2024 Assessment & Plan (10/23/2024 12:33 PM EDT): UA with mild proteinuria PSA pending Fluid restriction 2 hours before bedtime Tinnitus of both ears 03/24/2024 Chronic otitis media of right ear with effusion 10/05/2022 Assessment & Plan (10/05/2022 11:31 AM EDT): Start daily Flonase/Zyrtec Called ENT [facility] [phone] and booked for audiogram and appointment for [...] Encounters Date Type Department Care Team Description 06/23/2025 10:30 AM EST Office Visit [facility] [address] [place] [address] Stephenie Rodríguez MD Primary hypertension (Primary Dx); Encounter for immunization 06/23/2025 Travel 06/22/2025 Telephone [facility] [address] [place] [address] Stephenie Rodríguez MD chart prep 05/30/2025 Refill [facility] [address] [place] [address] [facility] 04/22/2025 Refill [facility] [address] [place] [address] Stephenie Rodríguez MD 04/20/2025 Refill [facility] [address] [place] [address] Stephenie Rodríguez MD from Last 3 Months Immunizations Immunization Administration Dates Next Due Influenza High-dose Quadrivalent Preservative Fr ee 04/29/2023 Influenza, High Dose Seasonal, Preservative Free 06/23/2025,05/27/2024 Influenza, IIV3, injectable 03/28/2016 Influenza, trivalent, adjuvanted [...] 67 10/23/2024 11:16 AM EDT Temperature 36.4 C (97.6 F) 10/23/2024 11:16 AM EDT Respiratory Rate 16 10/23/2024 11:16 AM EDT [...] 1955 Sigmoidoscopy 1955 COVID-19 Vaccine ( season) 2025 11/10/2021, 05/24/2021, 10/08/2020 SDOH Screening 03/13/2025 03/13/2024 Alcohol/Substance Use Screening 10/23/2025 10/23/2024 Depression Screening 10/23/2025 10/23/2024, 10/24/19 Tobacco Screening 06/23/2026 06/23/2025 DTaP/Tdap/Td Vaccines (2 - Td or Tdap) 09/12/2026 09/12/2016 Lipid Panel 04/13/2027 04/13/2022, 03/03/2021 RSV Patients and Patients Aged 60 years or older (1 - 1-dose 75+ series) 2029 Hepatitis C Screening Completed 03/03/2021 Pneumococcal Vaccine: 50+ Years Completed 07/12/2023 Zoster Vaccines Completed 07/12/2023, 04/01, 10/14/2016 Influenza Vaccine Completed 06/23/2025, , 04/29/2023, Additional history exists HIB Vaccines Aged Out [...] Procedure Name Priority Date/Time Associated Diagnosis Comments LIPID PANEL, STANDARD Routine 04/13/2022 10:34 AM EDT ZZZ HISTORICAL HEPATITIS C AB W/REFL TO HCV RNA, QN, PCR Routine 03/03/2021 9:56 AM EDT from Last 3 Months or Most Recently Relevant to Health Maintenance Results * LIPID PANEL, STANDARD (04/13/2022 10:34 AM EDT) Chol/HDLC Ratio 3.3 <5.0 (calc) [facility] Cholesterol, Total 156 <200 mg/dL [facility] HDL Cholesterol 48 > OR = 40 mg/dL [facility] LDL Cholesterol 87 mg/dL (calc) [facility] Comment: Reference range: <100 Desirable range <100 mg/dL for primary prevention; <70 mg/dL for patients with CHD or diabetic patients with > or = 2 CHD risk factors. LDL-C is now calculated using the Dillan-Rizvi calculation, which is a validated novel method providing better accuracy than the Friedewald equation in the estimation of LDL-C. Dillan SS et al. MAGGIE. 2013;310(19): 0723-0723 (http://education.[employer].Zen99/faq/XQC606) Non-HDL Cholesterol 108 <130 mg/dL (calc) [facility] Comment: For patients with diabetes plus 1 major ASCVD risk factor, treating to a non-HDL-C goal of <100 mg/dL (LDL-C of <70 mg/dL) is considered a therapeutic option. Triglycerides 111 <150 mg/dL CONVE RTED [facility] 04/13/2022 10:3 4 AM EDT us Stephenie Rodríguez MD LAB BLOOD ORDERABLES Final Res ult [facility] * HEPATITIS C AB W/REFL TO HCV RNA, QN, PCR (03/03/2021 9:56 AM EDT) HEPATITIS C ANTIBODY NON-REACT ELVIRA NON-REACT ELVIRA [facility] INDEX 0.01 <1.00 [facility] Comment: HCV antibody was non-reactive. There is no laboratory evidence of HCV infection. In most cases, no further action is required. However, if recent HCV exposure is suspected, a test for HCV RNA (test code 31447) is suggested. For additional information please refer to http://[employer].GiftMe/faq/COG99o4 (This link is being provided for informational/ educational purposes only.) 03/03/2021 9:56 AM EDT us Stephenie Rodríguez MD HISTORICAL/NON ORDERABLE LABS Final Result [facility] [address] from Last 3 Months or Most Recently Relevant to Health Maintenance Insurance [employer] Care Teams Lab Scientist Relationship Specialty Start Date End Date Stephenie Rodríguez MD [address] [place] [address] PCP - General Family Medicine 03/03/21
--- OUTSIDE RECORDS SUMMARY | 2025-06-23 11:18 | XMS_ITS | Encounter Summary ---
Author Organization [employer] Address [address] [facility] [address] [place] [address] Care Team Providers Care Bi Analyst Name Role Phone Stephenie Rodríguez MD Primary Care Provider [phone] Reason for Visit * Reason Onset Date Comments chart prep 06/22/2025 Encounter Details Date Type Department Care Team (Late st Contact Info) Description 06/22/2025 Telephone [facility] [address] [place], [place] [phone] Stephenie Rodríguez MD [address] [place], [place] [phone] chart prep Social History Tobacco Use Types Packs/Day Years [...] encounter Miscellaneous Notes * Telephone Encounter - Coby Kohli [place] - 06/22/2025 2:51 PM EST Chart Prep Labs: done Images: done Referrals: complete Vaccines due: Covid and Flu Screenings: colonoscopy Overdue care gaps: SDOH documented in this encounter Plan of Treatment Not on file documented as of this encounter Visit Diagnoses Not on filedocumented in this encounter Additional Health Concerns Assessment Noted Time PHQ-9 Depression Total Score: 1 10/24/19 25 11:18 AM EDT documented as of this encounter Care Teams Bi Analyst Relationship Specialty Start Date End Date Stephenie Rodríguez MD [address] [place] [address] PCP - General Family Medicine 03/03/21 documented as of this encounter
[2025-06-23 15:28] LABS: Hemoglobin A1C 148.3671 umol/L
[2025-06-23 15:41] LABS: Alanine Aminotransferase 42 U/L (0-40); Albumin Level 4.9 g/dL (3.5-5.0); Alkaline Phosphatase 95 U/L (39-117); Anion Gap 14 (12-20); Aspartate Amino Transferase 30 U/L (5-37); Blood Urea Nitrogen 24 mg/dL (9-16); Calcium 9.4 mg/dL (8.4-10.2); Carbon Dioxide 28 mmol/L (22-29); Chloride 105 mmol/L (96-108); Estimated Glomerular Filt Rate 59; Potassium 3.6 mmol/L (3.3-5.1); Sodium 143 mmol/L (135-145); Total Protein 6.9 g/dL (6.5-8.0)
[2025-06-23 16:30] LABS: Prostate Specific Antigen 1.34 ng/mL (<0.05-4.0)
== END 2025-06-23 11:13 | disposition home or self-care (01) ==
LOC: HO.HHCL 11:12
PROVIDERS: PCP General Practice; Visit Provider General Practice
DX: Z12.5 Encounter for screening for malignant neoplasm of prostate (principal); Z13.1 Encounter for screening for diabetes mellitus; I10 Essential (primary) hypertension; R35.0 Frequency of micturition
CPT/HCPCS: 36415; 80053; 83036; 84153